=== PATIENT | male | born 1980 | race Hispanic/Latino ===

== ENCOUNTER 2020-01-30 01:44 | Emergency (ER) | payer OTHER | END 2020-01-30 03:13 | disposition home or self-care (01) | LOC: EDH 01:44 | DX: F41.9 Anxiety disorder, unspecified (principal); F14.10 Cocaine abuse, uncomplicated; J30.9 Allergic rhinitis, unspecified; Z72.0 Tobacco use | CPT/HCPCS: 71046; 93005 ==

== ENCOUNTER 2020-12-16 00:04 | Emergency (ER) | payer OTHER ==
[2020-12-16] MEDS ORDERED: DOXYCYCLINE HYCLATE 100 MG TABLET PO ONE (01:26)
== END 2020-12-16 02:18 | disposition home or self-care (01) ==
LOC: EDH 00:04
DX: L66.2 Folliculitis decalvans (principal); Z72.0 Tobacco use

== ENCOUNTER 2022-01-13 19:49 | Emergency (ER) | payer OTHER ==
[~2022-01-13] VITALS: Ht 162.6 cm; Wt 79.4 kg
[2022-01-13 19:49] VITALS: BP 138/77
[2022-01-13] MEDS ORDERED: NAPR500T6 PO (20:27)
[2022-01-13] MEDS ORDERED: ACET-2079 PO (20:27)
[2022-01-13] MEDS ORDERED: AMOX1TAB16 PO (20:27)
[2022-01-13] MEDS ORDERED: AMOX/CLAV 875/125MG TAB PO ONE (20:30)
[2022-01-13] MEDS ORDERED: KETOROLAC 30MG VIAL (30MG/ML) IM ONE (20:30)
[2022-01-13] MEDS ORDERED: ACETAMINOPHEN WITH CODEINE 1 TAB TAB PO ONE (20:30)
== END 2022-01-13 20:59 | disposition home or self-care (01) ==
LOC: EDH 19:49
DX: K08.89 Other specified disorders of teeth and supporting structures (principal); Z79.1 Long term (current) use of non-steroidal anti-inflammatories (NSAID)
CPT/HCPCS: 96372; 99283; J1885

== ENCOUNTER 2025-04-07 19:08 | Inpatient (IN) | payer SELFPAY ==
[~2025-04-07] VITALS: Ht 162.6 cm; Wt 78.0 kg
[~2025-04-07 19:08] MED LIST: ACET-2079 PO; AMOX1TAB16 PO; NAPR-1506 PO
--- NOTE | 2025-04-07 20:13 | ERN ---
General Chief Complaint: Palpitations Stated Complaint: PALPITATIONS Time Seen by MD: 20:03 History of Present Illness Initial Comments Mr. Quevedo is a very pleasant 44-year-old male with significant past medical history of a recent left hernia repair earlier today at [facility] by Dr. Melgar. Patient reports that after his surgery he was sent home and when he arrived he was resting. He reports that soon after started he started feeling palpitations, dizziness, nausea and right hand numbness. He reports NC in an elevated heart rate feeling his chest fall follow up by the shaking and numbness in his right hand. He also reports dry mouth, dizziness in episode of nausea upon arrival to the ED. he denies any chest pain or fever. Allergies: Coded Allergies: No Known Drug Allergies (Unverified Allergy, Unknown, 01/30/20) Home Meds Active Scripts Acetaminophen with Codeine (Acetaminophen-Cod #3 Tablet) 1 Each Tablet, 1 TAB PO Q4H PRN for PAIN LEVEL 7 TO 10, #7 TAB Prov:FITTINGCOSTAP 01/13/22 Naproxen (Naproxen) 500 Mg Tablet.dr, 500 MG PO BIDPC, #15 TAB Prov:FITTINGCOSTAP 01/13/22 Amoxicillin/Potassium Clav (Amox Tr-K Clv 875-125 mg Tab) 1 Each Tablet, 1 EACH PO BID, #14 TAB Prov:FITTINGCOSTAP 01/13/22 Past Medical History Past Medical History: No Pertinent History Past Surgical History: Other Surgical History Other: UMBILICAL HERNIA REPAIR 04/07/25 ROS Dictation Constitutional: Positive for dizziness and shaking Eyes: Negative for injury, pain,redness, and discharge ENT: Negative for injury,pain or swelling Cardiovascular: Positive for palpitations Respiratory: Negative for shortness of breath, cough, and wheezing, Abdomen/GI: Negative for abdominal pain, nausea, vomiting, diarrhea, and constipation Back: Negative for injury and pain : Negative for injury, bleeding and discharge MS/Extremity: Negative for injury and deformity Skin: Negative for rash, and discoloration Neuro: Negative for headache, weakness, numbness, tingling, and seizure Psych: Positive for anxiety Physical Exam Physical Exam Dictation General: awake, alert, NAD Head/Face: Normocephalic, atraumatic Eyes: PERRL, EOMI, vision at baseline ENT: oral cavity clear, TMs clear, no signs of infection Neck: Trachea midline, supple, no nuchal rigidity Cardiovascular: Tachycardic Respiratory: CTAB, no respiratory distress, No rales or wheezes Abdomen: Soft, non-tender, non-distended, normal bowel sounds, no guarding or rebound. Skin: Warm, dry, normal turgor, no rash MS/Extremity: Pulses equal, no cyanosis, neurovascular intact, FROM Neuro: COAx4, GCS 15, strength 5/5, CN 2-12 intact, normal cerebellar exam, normal gait, Psych: Visibly anxious Results Laboratory and Microbiology Lab and Micro Result Laboratory Tests Test 04/07/25 20:09 04/07/25 20:58 White Blood Count 16.1 K/uL (4.8-10.8) H Red Blood Count 4.42 MIL/uL (4.50-6.20) L Hemoglobin 12.9 g/dL (14.0-18.0) L Hematocrit 38.4 % (42-54) L Mean Corpuscular Volume 86.9 fL (79-99) Mean Corpuscular Hemoglobin 29.2 pg (27.0-33.0) Mean Corpuscular Hemoglobin Concent 33.6 g/dL (32.0-36.0) Red Cell Distribution Width 12.9 % (11.0-15.5) Platelet Count 365 K/uL (130-400) Mean Platelet Volume 9.0 fL (7.5-10.5) Immature Granulocyte % (Auto) 0.8 % (0-1) Neutrophils (%) (Auto) 90.9 % (40.0-77.0) H Lymphocytes (%) (Auto) 5.2 % (21.0-51.0) L Monocytes (%) (Auto) 3.0 % (3.0-13.0) Eosinophils (%) (Auto) 0.0 % (0.0-8.0) Basophils (%) (Auto) 0.1 % (0.0-5.0) Neutrophils # (Auto) 14.6 K/uL (1.8-7.7) H Lymphocytes # (Auto) 0.8 K/uL (1.0-4.8) L Monocytes # (Auto) 0.5 K/uL (0.1-1.0) Eosinophils # (Auto) 0.00 K/uL (0.00-0.70) Basophils # (Auto) 0.01 K/uL (0.00-0.20) Absolute Immature Granulocyte (auto 0.13 K/uL (0-1) Nucleated Red Blood Cells 0.0 % (0.0-0.19) White Cell Morphology Comment See comments Sodium Level 137 mmol/L (136-145) Potassium Level 4.0 mmol/L (3.5-5.1) Chloride Level 100 mmol/L (101-111) L Carbon Dioxide Level 25 mmol/L (21-32) Blood Urea Nitrogen 14 mg/dL (7-18) Creatinine 1.0 mg/dL (0.5-1.3) Glomerular Filtration Rate Calc 96 mL/min (>90) Random Glucose 153 mg/dL (70-105) H Total Calcium 8.8 mg/dL (8.5-10.1) Total Creatine Kinase 216 U/L (21-232) Troponin I High Sensitivity < 4 ng/L (4-75) L Urine Color LIGHT-YELLOW (YELLOW) Urine Appearance CLEAR (CLEAR) Urine pH 6.5 (5.0-8.0) Urine Specific [place] 1.016 (1.001-1.031) Urine Protein NEGATIVE mg/dL (NEGATIVE) Urine Glucose (UA) NEGATIVE mg/dL (NEGATIVE) Urine Ketones NEGATIVE mg/dL (NEGATIVE) Urine Occult Blood MODERATE (NEGATIVE) H Urine Nitrate NEGATIVE (NEGATIVE) Urine Bilirubin NEGATIVE mg/dL (NEGATIVE) Urine Urobilinogen 0.2 mg/dL (0.2-1.0) Urine Leukocyte Esterase NEGATIVE Genna/uL Urine RBC 26-50 /HPF (0-1) H Urine WBC 2-5 /HPF (0-1) H Urine Squamous Epithelial Cells RARE /HPF (0-2) Urine Bacteria None /HPF (None Seen) Urine Opiates Screen NEGATIVE (NEGATIVE) Urine Barbiturates Screen NEGATIVE (NEGATIVE) Urine Phencyclidine Screen NEGATIVE (NEGATIVE) Urine Amphetamines Screen NEGATIVE (NEGATIVE) Urine Benzodiazepines Screen POSITIVE (NEGATIVE) H Urine Cocaine Screen NEGATIVE (NEGATIVE) Urine Marijuana (THC) Screen NEGATIVE (NEGATIVE) MDM Patient has not inflammatory changes in the left inguinal canal. Patient will be given antibiotics. Patient will be admitted to Medicine MDM: Differential diagnosis: Sepsis Rationale: Tests considered and ordered secondary to shared decision making include: labs, ECG and radiology Previous outside records reviewed: Old ER visits. Risk of complication and/or morbidity or mortality of patient management: None Medications-Per medication reconciliation Need for hospitalization: Patient does meet criteria for hospitalization. Need for emergency major/minor surgery: No There are no social concerns with this patient. Prescription drug management Prescriptions will include symptomatic care Patient's prior external medical records from other ER visits were reviewed by me as indicated. Prior testing and results from previous visits were reviewed. Prior tests were taken into account with medical decision making and resource utilization, independent historian/historians were used to obtain complete medical history. I independently interpreted the test that were performed, results were reviewed by me and considered findings on radiology if ordered. Medical management and examination interpretation discussions were had by me with other qualified healthcare professionals as indicated for the patient's care. ED Course Orders Procedure Category Date Status Time Vital Signs Per CPOE 04/07/25 Transmitted Routine 19:57 Chest 1vw RAD 04/07/25 Resulted 19:57 12 Lead Ekg Tracing- EKG 04/07/25 Logged Technical 19:57 Oxygen By Nc/Pulse Ox CPOE 04/07/25 Transmitted 19:57 Maintain Iv CPOE 04/07/25 Transmitted 19:57 Iv Insertion CPOE 04/07/25 Transmitted 19:57 Cardiac Monitoring CPOE 04/07/25 Transmitted 19:57 Pulse Oximetry With CPOE 04/07/25 Transmitted Vs And Prn 19:57 Cbc With Differential LAB 04/07/25 Complete 19:57 Activity: Br W/Brp CPOE 04/07/25 Transmitted With Assist 19:57 Creatine Kinase, Total LAB 04/07/25 Complete 19:57 Troponin I High LAB 04/07/25 Complete Sensitivity 19:57 Urinalysis Profile LAB 04/07/25 Complete 19:57 Basic Metabolic Panel LAB 04/07/25 Complete 19:57 Lactated Ringers PHA 04/07/25 Complete 1000ml (Lactated 20:30 Ondansetron 4mg Inj PHA 04/07/25 Complete (Zofran 4mg Inj) 20:30 Lorazepam 1 Mg PHA 04/07/25 Complete (Ativan) 20:30 Drug Screen Urine LAB 04/07/25 Complete 20:58 Ct Abdomen/Pelvis CT 04/07/25 Resulted W/Contrast 21:30 Iohexol (Omnipaque) PHA 04/07/25 Complete 22:07 12 Lead Ekg Tracing- EKG 04/07/25 Logged Technical 22:09 Cefepime Hcl 1 Gm PHA 04/08/25 In Process Vial (Maxipime 1 Gm Vi 00:30 Current Medications Medications (Trade) Dose Ordered Sig/Danielle Route PRN Reason Start Time Stop Time Status Last Admin Dose Admin Cefepime HCl (MAXipime 1 GM vial) 1 gm Q8H IVPB 04/08/25 00:30 04/18/25 00:29 Iohexol (Omnipaque) 35,000 mg STK-MED ONCE IV 04/07/25 22:07 04/07/25 22:08 DC Lactated Ringer's 591 ml @ 197 mls/hr ONCE ONCE IV 04/07/25 20:30 04/07/25 23:29 DC 04/07/25 20:40 Lorazepam (AtiVAN) 1 mg ONCE ONCE PO 04/07/25 20:30 04/07/25 20:31 DC 04/07/25 20:40 Ondansetron HCl (zoFRAN 4MG INJ) 4 mg ONCE ONCE IVP 04/07/25 20:30 04/07/25 20:31 DC 04/07/25 20:40 Vital Signs Date Time Temp Pulse Resp B/P (MAP) Pulse Ox O2 Delivery O2 Flow Rate FiO2 04/07/25 23:48 98.4 91 17 114/67 95 Room Air* 0 04/07/25 22:45 98.8 102 19 106/66 95 Room Air* 0 04/07/25 21:47 98.8 110 18 116/69 96 Room Air* 0 04/07/25 21:09 98.8 133 14 120/70 100 Room Air* 0 04/07/25 20:15 98.2 108 17 123/74 98 Room Air* 0 04/07/25 19:46 98.2 94 18 125/70 97 Room Air 0 DX & DISP Disposition: Inpatient Departure Impression: Primary Impression: Sepsis Condition: Stable Referrals: LEESA HUDDLESTON MD (PCP) LOLY GOODWIN MD Apr 07, 2025 20:13
[2025-04-07 20:17] LABS: IMMATURE GRANULOCYTE ABSOLUTE 0.13 K/uL (0-1); NUCLEATED RED BLOOD CELLS 0.0 % (0.0-0.19); PLATELET COUNT (AUTO) 365 K/uL (130-400); RED BLOOD CELL COUNT(AUTO) 4.42 MIL/uL (4.50-6.20); RED CELL DISTRIBUTION WIDTH 12.9 % (11.0-15.5); WHITE BLOOD COUNT (AUTO) 16.1 K/uL (4.8-10.8)
[2025-04-07 20:28] LABS: CREATININE 1.0 mg/dL (0.5-1.3); GLOMERULAR FILTR. RATE CALC 96.0 mL/min (>90); GLUCOSE,RANDOM 153.0 mg/dL (70-105); SODIUM SERUM 137.0 mmol/L (136-145); UREA NITROGEN, BLOOD 14.0 mg/dL (7-18)
[2025-04-07 20:39] LABS: CREATINE KINASE, TOTAL 216.0 U/L (21-232)
[2025-04-07] MEDS: LACTATED RINGERS IV ONE (20:40)
[2025-04-07 21:09] LABS: APPEARANCE,URINE CLEAR (CLEAR); GLUCOSE, URINE (UA) NEGATIVE (NEGATIVE); LEUKOCYTE ESTERASE ,URINE NEGATIVE Leu/uL (NEGATIVE); NITRATE,URINE NEGATIVE (NEGATIVE); OCCULT BLOOD,URINE MODERATE (NEGATIVE)
[2025-04-07 21:12] LABS: ADD UA MICROSCOPIC YES
[2025-04-07 21:15] LABS: SQUAMOUS EPITHELIAL CELL,UR RARE /HPF (0-2)
[2025-04-07 21:19] LABS: AMPHET/METH SCREEN,URINE NEGATIVE (NEGATIVE); BARBITURATE SCREEN, URINE NEGATIVE (NEGATIVE); CANNABINOID SCREEN,URINE NEGATIVE (NEGATIVE); COCAINE SCREEN,URINE NEGATIVE (NEGATIVE)
[2025-04-07] MEDS ORDERED: IOHEXOL 350 MG/ML 100ML INFUS..BTL IV ONE (22:07)
--- NOTE | 2025-04-07 22:19 | HMCIMG ---
EXAM: CR Chest, 1 view CLINICAL HISTORY: Chest pain. COMPARISON: Chest radiograph dated 01/30/2020. FINDINGS: The lungs show no infiltrates or other acute findings. No pleural effusion or pneumothorax. The cardiomediastinal silhouette is within normal limits. No acute osseous abnormality. IMPRESSION: No acute cardiopulmonary process is evident. No interval changes. /[place]
--- NOTE | 2025-04-07 23:46 | HMCIMG ---
EXAM: CT Abdomen and Pelvis with IV contrast CLINICAL HISTORY: Pain. TECHNIQUE: Thin collimated axial CT images of the abdomen and pelvis were obtained, with sagittal and coronal reformatted images also submitted. A CT scan is done according to ALARA (As Low As Reasonably Achievable). COMPARISON: CT scan of the abdomen and pelvis. 05/27/2012. FINDINGS: Unremarkable visualized lung parenchyma. There is no focal abnormality appreciated within the liver, gallbladder, pancreas, spleen, adrenals, or kidneys. There is no obvious bowel wall thickening. Bowel loops are normal in caliber without evidence of obstruction or ileus. The appendix is unremarkable. There is no abnormality within the urinary bladder. Unremarkable reproductive organs. Trace free fluid in the cul-de-sac. No lymphadenopathy. No pneumoperitoneum. Moderate inflammation with emphysematous changes in the left inguinoscrotal region and lower left anterior abdominal wall. Focal nodular inflammatory thickening of the fascia in the left iliac fossa region measuring 3.7 x 3.0 x 2.2 cm. No gross abnormality in the abdominal vessels. There is no acute osseous abnormality. IMPRESSIONS: Moderate inflammation with emphysematous changes in the left inguinoscrotal region and left lower anterior abdominal wall. Focal nodular inflammatory thickening of the fascia in the left iliac fossa region. The findings are new compared to the previous CT dated 05/27/2012. /Mansi
[2025-04-08] MEDS ORDERED: guaiFENesin-DM 200/20MG 10ML PO PRN (07:30)
[2025-04-08] MEDS ORDERED: PoTASSium chl 10% ELIXIR 20MEQ 20 MEQ/15 ML UDCUP PO PRN (07:30)
[2025-04-08] MEDS ORDERED: DEXTROSE 50%-WATER 50 ML DISP.SYRIN IV PRN (07:30)
[2025-04-08] MEDS ORDERED: NITROGLYCERIN 0.4 MG SL TAB SL PRN (07:30)
[2025-04-08] MEDS ORDERED: MAGNESIUM 2GM PREMIX 50ML 50 ML IV PRN (07:30)
[2025-04-08] MEDS ORDERED: LACTULOSE 20 GM/30 ML UDCUP PO PRN (07:30)
[2025-04-08] MEDS ORDERED: GLUCAGON 1MG KIT 1 MG ML IM PRN (07:30)
[2025-04-08] MEDS ORDERED: HYDROcodone/APAP 5/325 1 TAB TABLET PO PRN (07:30)
[2025-04-08] MEDS ORDERED: PoTASSium chloRIDE 10MEQ SR 10 MEQ/TAB TAB.SR.24H PO PRN (07:30)
[2025-04-08] MEDS ORDERED: MAG/ALUM/SIMETH 30 ML UDCUP PO PRN (07:30)
[2025-04-08] MEDS ORDERED: FAMOTIDINE 20MG VIAL IV PRN (07:30)
--- NOTE | 2025-04-08 07:31 | EKG ---
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
[2025-04-08 08:00] VITALS: BP 106/57; PULSE 71; RESP 17; TEMP 97.6
[2025-04-08] MEDS: FAMOTIDINE 20MG VIAL IV SCH (08:13)
[2025-04-08] MEDS: 0.9%NACL 1000ML 1,000 ML IV SCH (08:13)
[2025-04-08 12:00] VITALS: BP 155/65; PULSE 87; RESP 18; TEMP 97.8
[2025-04-08] MEDS ORDERED: VANCOMYCIN PROTOCOL PER PHARMACY IV SCH (13:00)
--- NOTE | 2025-04-08 13:52 | HP ---
[facility] HISTORY AND PHYSICAL Date of Service: Apr 08, 2025 Time of Service: 13:37 PCP self reffering Admitting: Dr Sands, Allergies: No Allergy Information Available, No Known Drug Allergies HISTORY OF PRESENT ILLNESS: [ Patient is 44 years old male with a past medical history of anxiety, who came to emergency department s/p hernia repair yesterday with Dr. Nelson the [facility] in [place]. Patient reports that after his surgery he was sent home and when he arrived he was resting. He reports that soon after started he started feeling palpitations, dizziness, nausea and right hand numbness. He reports NC in an elevated heart rate feeling his chest fall follow up by the shaking and numbness in his right hand. He also reports dry mouth, dizziness in episode of nausea upon arrival to the ED. he denies any chest pain or fever. Most recent vital signs temperature 97.9 pulse 87 respiration 18 blood pressure 155/65 patient is on room air satting 98%. WBC 16.1 hemoglobin 12.9 hematocrit 38.4 platelets 365. UA negative for leukocytosis or nitrates. Toxicology positive for for benzodiazepines. Sodium 137 potassium 4.0 CO2 25 BUN 14 creatinine 1.0 GFR 96. Chest x-ray negative. CT abdomen/pelvis showed moderate inflammation with emphasis tramadol was changes in the left inguinal scrotal region and left lower anterior abdominal wall. Focal nodular inflammatory thickening of the fascia in the left iliac fossa region. The findings are new compared to the previous CT dated 05/27/2012. Patient will be admitted under hospitalist care for further evaluation/recommendation. Patient was placed on cefepime and vancomycin. We will consult Infectious Disease doctor and surgeon. A.m. labs REVIEW OF SYSTEMS CONSTITUTIONAL: Denies fevers, chills, or night sweats. No unintentional weight loss reported. NEUROLOGICAL: Denies headache, amaurosis fugax, motor weakness, sensory deficit, vertigo/spinning sensation, gait abnormalities, or tremors. ENT: No hearing loss, otalgia, otorrhea, rhinitis, rhinorrhea, hoarseness, or sore throat. CARDIOVASCULAR: Denies any exertional angina, dyspnea on exertion, orthopnea, paroxysmal nocturnal dyspnea, palpitations, life-threatening arrhythmias, claudication. Palpitations PULMONARY: Denies any shortness of breath, cough, phlegm/sputum, hemoptysis, pleuritic chest pain. SLEEP: Denies morning headaches, daytime somnolence or napping. Denies difficulty falling asleep, staying asleep, waking from sleep. Denies knowledge of snoring. GASTROINTESTINAL: Denies any type of dysphagia to either liquids or solids. Denies nausea, vomiting, pyrosis, early satiety, abdominal pain, diarrhea, constipation, or changes in stool consistency or caliber. Denies coffee-ground emesis, hematemesis, hematochezia, or melanotic stools. GENITOURINARY: Denies frequency, urgency, nocturia, hematuria or incontinence (Storage/Irritative symptoms.) Low urinary stream, straining to void, urinary intermittency or hesitancy, splitting of the voiding stream, terminal dribbling. ENDOCRINOLOGIC: Denies polyuria, polydipsia, polyphagia or heat/cold intolerances. HEMATOLOGIC: Denies thrombophilia/previous clots, or coagulopathy/bleeding disorders. ONCOLOGIC: Denies personal history of malignancy. DERMATOLOGIC: Denies rashes or pruritus. PSYCHIATRIC: Denies any suicidal or homicidal ideation. Denies hallucinations. PAST MEDICAL HISTORY: [ Anxiety] PAST SURGICAL HISTORY: [ Hernia repair 04/07/25 ] PAST SOCIAL HISTORY: [ Patient denies smoking. Patient denies any drug illicit. Patient denies any alcohol illicit ] FAMILY HISTORY: [ Patient lives at home with the family ] Coded Allergies: No Known Drug Allergies (Unverified Allergy, Unknown, 01/30/20) PHYSICAL EXAM GENERAL APPEARANCE: The patient is awake, alert, and oriented, in no acute cardiopulmonary distress. NEUROLOGICAL: Cranial nerves II-XII grossly intact. Motor is 5/5 in bilateral upper and lower extremities proximal to distal. No sensory deficits. HEENT: Face is symmetric. Pupils are equal and reactive. Extraocular movements are intact. NECK: Supple. No JVD. No thyromegaly. No submental, submandibular, pre-/postau ricular, occipital or supraclavicular lymphadenopathy. CHEST: Normal chest expansion. No Telemetry. LUNGS: Absence of any rales, rhonchi or any wheezing. CARDIOVASCULAR: Regular. S1 and S2 normal. No appreciable rubs, murmurs or gallops. ABDOMEN: Soft, nontender, and nondistended. There is no rebound, voluntary guarding, or rigidity. : Deferred. No [place]. EXTREMITIES: Non-edematous and not cyanotic. No clubbing. Good capillary refill. SKIN: No skin breakdown. Vital Sign (Last 24 Hours) 04/08/25 04/08/25 05:45 12:00 Temp 97.9 Pulse 87 Resp 18 B/P (MAP) 155/65 Pulse Ox 98 O2 Delivery Room Air O2 Flow Rate 0 FiO2 21 LABS: Laboratory: Test 04/08/25 11:39 04/07/25 20:58 04/07/25 20:09 Range/Units Whole Blood Glucose 87 70-110 MG/DL Urine Color LIGHT-YELLOW YELLOW Urine Appearance CLEAR CLEAR Urine pH 6.5 5.0-8.0 Urine Specific [place] 1.016 1.001-1.031 Urine Protein NEGATIVE NEGATIVE mg/dL Urine Glucose (UA) NEGATIVE NEGATIVE mg/dL Urine Ketones NEGATIVE NEGATIVE mg/dL Urine Occult Blood MODERATE H NEGATIVE Urine Nitrate NEGATIVE NEGATIVE Urine Bilirubin NEGATIVE NEGATIVE mg/dL Urine Urobilinogen 0.2 0.2-1.0 mg/dL Urine Leukocyte Esterase NEGATIVE NEGATIVE Genna/uL Urine RBC 26-50 H 0-1 /HPF Urine WBC 2-5 H 0-1 /HPF Urine Squamous Epithelial Cells RARE 0-2 /HPF Urine Bacteria None None Seen /HPF Urine Opiates Screen NEGATIVE NEGATIVE Urine Barbiturates Screen NEGATIVE NEGATIVE Urine Phencyclidine Screen NEGATIVE NEGATIVE Urine Amphetamines Screen NEGATIVE NEGATIVE Urine Benzodiazepines Screen POSITIVE H NEGATIVE Urine Cocaine Screen NEGATIVE NEGATIVE Urine Marijuana (THC) Screen NEGATIVE NEGATIVE White Blood Count 16.1 H 4.8-10.8 K/uL Red Blood Count 4.42 L 4.50-6.20 MIL/uL Hemoglobin 12.9 L 14.0-18.0 g/dL Hematocrit 38.4 L 42-54 % Mean Corpuscular Volume 86.9 79-99 fL Mean Corpuscular Hemoglobin 29.2 27.0-33.0 pg Mean Corpuscular Hemoglobin Concent 33.6 32.0-36.0 g/dL Red Cell Distribution Width 12.9 11.0-15.5 % Platelet Count 365 130-400 K/uL Mean Platelet Volume 9.0 7.5-10.5 fL Immature Granulocyte % (Auto) 0.8 0-1 % Neutrophils (%) (Auto) 90.9 H 40.0-77.0 % Lymphocytes (%) (Auto) 5.2 L 21.0-51.0 % Monocytes (%) (Auto) 3.0 3.0-13.0 % Eosinophils (%) (Auto) 0.0 0.0-8.0 % Basophils (%) (Auto) 0.1 0.0-5.0 % Neutrophils # (Auto) 14.6 H 1.8-7.7 K/uL Lymphocytes # (Auto) 0.8 L 1.0-4.8 K/uL Monocytes # (Auto) 0.5 0.1-1.0 K/uL Eosinophils # (Auto) 0.00 0.00-0.70 K/uL Basophils # (Auto) 0.01 0.00-0.20 K/uL Absolute Immature Granulocyte (auto 0.13 0-1 K/uL Nucleated Red Blood Cells 0.0 0.0-0.19 % White Cell Morphology Comment See comments Sodium Level 137 136-145 mmol/L Potassium Level 4.0 3.5-5.1 mmol/L Chloride Level 100 L 101-111 mmol/L Carbon Dioxide Level 25 21-32 mmol/L Blood Urea Nitrogen 14 7-18 mg/dL Creatinine 1.0 0.5-1.3 mg/dL Glomerular Filtration Rate Calc 96 >90 mL/min Random Glucose 153 H 70-105 mg/dL Total Calcium 8.8 8.5-10.1 mg/dL Total Creatine Kinase 216 21-232 U/L Troponin I High Sensitivity < 4 L 4-75 ng/L Current Medications Medications (Trade) Dose Ordered Sig/Danielle Route PRN Reason Start Time Stop Time Status Last Admin Dose Admin Acetaminophen (TYLenol 325MG TAB) 650 mg Q4H PRN PO MILD PAIN (1-3) 04/08/25 07:30 05/08/25 07:29 Acetaminophen (TYLenol 325MG TAB) 650 mg Q6H PRN PO MILD PAIN (1-3) 04/08/25 07:30 04/08/25 07:25 DC Acetaminophen (TYLenol 325MG TAB) 650 mg Q6H PRN PO TEMPERATURE GREATER THAN 101.5 04/08/25 07:30 05/08/25 07:29 Acetaminophen/ Hydrocodone Bitart (NORco 5/325MG) 1 tab Q6H PRN PO MODERATE PAIN (4-6) 04/08/25 07:30 04/08/25 07:32 DC Al Hydroxide/Mg Hydroxide (MAALox PLUS 30ML) 30 ml Q6H PRN PO INDIGESTION 04/08/25 07:30 05/08/25 07:29 Cefepime HCl (MAXipime 1 GM vial) 1 gm Q8H IVPB 04/08/25 00:30 04/08/25 07:26 DC 04/08/25 00:42 1 GM Ceftriaxone Sodium 2 gm/ Sodium Chloride 100 ml @ 200 mls/hr Q24H IV 04/08/25 07:30 04/08/25 07:32 DC Ceftriaxone Sodium (Rocephin 2gm Inj) 2 gm Q24H IVPB 04/08/25 08:00 04/18/25 07:59 04/08/25 08:15 2 GM Dextrose (D50w) 50 ml AD PRN IV HYPOGLYCEMIA PROTOCOL 04/08/25 07:30 05/08/25 07:29 Diphenhydramine HCl (BENAdryl INJ) 25 mg Q6H PRN IV SEVERE ITCHING/RASH 04/08/25 07:30 05/08/25 07:29 Famotidine (Pepcid 20mg Vial) 20 mg BID IV 04/08/25 09:00 05/08/25 08:59 04/08/25 08:13 20 MG Famotidine (Pepcid 20mg Vial) 20 mg BID PRN IV NAUSEA/VOMITING 04/08/25 07:30 04/08/25 07:25 DC Glucagon (Glucagon 1mg Kit) 1 mg AD PRN IM HYPOGLYCEMIA PROTOCOL 04/08/25 07:30 05/08/25 07:29 Guaifenesin/ Dextromethorphan (RobiTUSSin DM 200/20MG 10ML) 10 ml Q4H PRN PO COUGH 04/08/25 07:30 05/08/25 07:29 Heparin Sodium (Porcine) (HEParin 5,000 UNIT VIAL) 5,000 unit BID SQ 04/08/25 09:00 05/08/25 08:59 04/08/25 08:15 5,000 UNIT Hydralazine HCl (APRESOLine 20MG INJ) 10 mg Q6H PRN IV For:SBP above 160;DBP above 90 04/08/25 07:30 05/08/25 07:29 Insulin Human Regular (humuLIN R 100 UNIT/ML 3ML) INSULIN SLIDING SCAL... ACHS SQ 04/08/25 07:30 05/08/25 07:29 Ketorolac Tromethamine (toRADol) 15 mg Q8H PRN IV MODERATE PAIN (4-6) 04/08/25 07:30 04/13/25 07:29 Lactulose (Constulose 20gm/ 30ml Udcup) 20 gm BID PRN PO CONSTIPATION 04/08/25 07:30 05/08/25 07:29 Magnesium Sulfate 50 ml @ 0 mls/hr PROTOCOL PRN IV OTHER [SEE ORDER COMMENTS] 04/08/25 07:30 05/08/25 07:29 Morphine Sulfate (morPHINE 2MG SYG) 1 mg Q4H PRN IVP SEVERE PAIN (7-10) 04/08/25 07:30 04/15/25 07:29 Nitroglycerin (Nitrostat) 0.4 mg PROTOCOL PRN SL CHEST PAIN 04/08/25 07:30 05/08/25 07:29 Ondansetron HCl (zoFRAN 4MG INJ) 4 mg Q6H PRN IV NAUSEA/VOMITING 04/08/25 07:30 05/08/25 07:29 Potassium Chloride 100 ml @ 100 mls/hr AD PRN IV POTASSIUM PROTOCOL 04/08/25 07:30 05/08/25 07:29 Potassium Chloride (K-Dur 10meq Sr Tab) 10 meq AD PRN PO POTASSIUM PROTOCOL 04/08/25 07:30 05/08/25 07:29 Potassium Chloride (KCl 10% Elixir 20meq/15ml) 10 meq AD PRN PO POTASSIUM PROTOCOL 04/08/25 07:30 05/08/25 07:29 Sodium Chloride 1,000 ml @ 100 mls/hr Q10H IV 04/08/25 07:30 05/08/25 07:29 04/08/25 08:13 100 MLS/HR Vancomycin HCl 250 ml @ 125 mls/hr Q12H IV 04/09/25 06:00 04/19/25 05:59 Vancomycin HCl (Vancomycin Protocol) 1 each AD IV 04/08/25 13:00 04/22/25 12:59 Zolpidem Tartrate (AmbIEN) 5 mg HS PRN PO INSOMNIA 04/08/25 07:30 8/15/25 07:29 DIAGNOSTICS / RADIOLOGY: [ ] ASSESSMENT: [ Acute symptomatic tachycardia POA s/p hernia repair 04/07/[address] Omar ESCOBAR Severe anxiety POA ] PLAN: [ Admit to: Medical-surgical floor Consults: surgeon, JEFFREY Antibiotics: Vancomycin and cefepime Tests: 2D echo NEURO: Minimize central acting medications as possible. Fall Precautions. Well lighted room through the day and minimize interruptions through the night to prevent acute delirium. PULMONARY: Supplemental 02 as needed BiPAP as necessary, for respiratory distress Titrate Fio2 to keep Spo2 > or = 90% DuoNebs and CPT as needed IS hourly while awake for pulmonary hygiene Out of bed to chair as tolerated VAP Bundle Maintain aspiration precautions at all times CARDIOVASCULAR: Follow hemodynamics. Vital signs per facility protocol GI & NUTRITION: Continue nutritional support Aspirations precautions Prokinetic agents and laxatives as needed KIDNEYS & ELECTROLYTES: Strict monitoring of intake and output Daily weights Avoid nephrotoxic agents Monitor electrolytes and replace as needed Goal urine output of 30mL/hr or 0.5mL/kg/hr Medications to be dosed according to renal function. Avoid contrast if possible ENDOCRINE: Maintain blood glucose between 100-180 at all times. Insulin sliding scale for blood glucose management Hypoglycemia and hyperglycemia protocol in place INFECTIOUS DISEASE: Trend temperature, WBC and procalcitonin level Follow cultures, deescalate antibiotics as soon as possible. Panculture if new onset fever HEMATOLOGY & COAGULATION: Monitor H&H. Keep Hgb > 7 Transfuse 1 unit of PRBC for Hgb < 7 Transfuse 1 pack of platelets of platelets < 20, 000 Watch for any signs and symptoms of bleeding SKIN: Pressure ulcer prevention per facility protocol Specialty mattress as needed Treatment plan discussed with patient and family at the bedside Medications to be reconciled once obtained by patient and/or family and available to be reconciled in computer p.r.n. medication for pain nausea and vomiting Questions were answered We will continue to monitor the patient closely Qualifications Examiner for disposition Rehab: PT/OT GI: PPI DVT: SCD's Code Status: Full Resuscitation Disposition: TBD Prognosis: Guarded ] ADVANCED CARE PLANNING 1. Which of the following were discussed? Hospice Care - Yes / No Therapeutic options - Yes / No Advance Directives - Yes / No Other discussions - 2. Discussed with who? Patient 3. Voluntary nature of this service was explained to the patient? Yes / No 4. Amount of time spent - ___ more than 35 minutes ____ 5. Reviewed by Physician? (if this service was performed by NPP) Yes / No ATTESTATION BY PHYSICIAN I have seen and examined the patient. I reviewed the documentation, medical decision making, and treatment plan as noted by the mid-level provider above. I agree with the findings and plan of care. SUSHIL SANDS MD, KATARZYNA B RN REFERRAL Apr 08, 2025 13:52
[2025-04-08] MEDS: VANCOMYCIN 2GM/500 ML BAG 500 ML IV ONE (13:53)
[2025-04-08 14:43] LABS: IMMATURE GRANULOCYTE ABSOLUTE 0.05 K/uL (0-1); NUCLEATED RED BLOOD CELLS 0.0 % (0.0-0.19); PLATELET COUNT (AUTO) 344 K/uL (130-400); RED BLOOD CELL COUNT(AUTO) 4.39 MIL/uL (4.50-6.20); RED CELL DISTRIBUTION WIDTH 13.1 % (11.0-15.5); WHITE BLOOD COUNT (AUTO) 9.3 K/uL (4.8-10.8)
[2025-04-08 14:59] LABS: ASPARTATE AMINOTRANSFERASE 24.0 U/L (10-37); CREATININE 1.1 mg/dL (0.5-1.3); GLOMERULAR FILTR. RATE CALC 86.0 mL/min (>90); GLUCOSE,RANDOM 101.0 mg/dL (70-105); SODIUM SERUM 142.0 mmol/L (136-145); TOTAL PROTEIN, SERUM 7.0 g/dL (6.0-8.3); UREA NITROGEN, BLOOD 11.0 mg/dL (7-18)
--- NOTE | 2025-04-08 15:03 | EKG ---
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
[2025-04-08 16:00] VITALS: BP 116/65; PULSE 85; RESP 18; TEMP 98.2
[2025-04-08 16:38] LABS: AMPHET/METH SCREEN,URINE NEGATIVE (NEGATIVE); BARBITURATE SCREEN, URINE NEGATIVE (NEGATIVE); CANNABINOID SCREEN,URINE NEGATIVE (NEGATIVE); COCAINE SCREEN,URINE NEGATIVE (NEGATIVE)
[2025-04-08 18:33] VITALS: O2SAT 99
--- NOTE | 2025-04-08 20:42 | PN ---
INFECTIOUS DISEASE FOLLOWUP NOTE DATE OF SERVICE: 04/08/2025 SUBJECTIVE: The patient is seen and examined at bedside today. The patient has no fever, no chills. No nausea or vomiting. No bleeding tendency. No rashes or itchiness. Palpitation has resolved. No dysuria or urinary frequency. PHYSICAL EXAMINATION: VITAL SIGNS: Temperature 98.7. EYES: No icterus. Pupils equal and reactive. HENT: No oral thrush seen. Moist oral mucosa. NECK: Supple. No JVD or thyromegaly. LUNGS: Good air entry. No rales. No rhonchi. CARDIOVASCULAR: S1 and S2, regular. No murmur heard. ABDOMEN: Full, soft. Bowel sound is present. CENTRAL NERVOUS SYSTEM: Awake, alert, oriented x 3. No focal deficits. SKIN: No rashes. No itchiness. LYMPHATIC: No peripheral lymphadenopathy. BACK: No deformity. No pressure ulcer. HEMATOLOGIC: No bleeding or petechial lesions seen. ASSESSMENT: A 44-year-old male presented with palpitation. Current problems include: * Palpitation. * Dehydration. * Leukocytosis. * ____ status post surgery ____. PLAN: * Continue nutritional support. * Continue pain management. * Continue antiemetic. * Continue GI prophylaxis. * No antibiotic needed at this time. TID: [id number] RECEIPT: [id number]
--- NOTE | 2025-04-08 23:01 | HMCSR ---
APPROVED REPORT EXAM: Two-dimensional and M-mode echocardiogram with Doppler and color Doppler. INDICATION ICD: Chest Pain Heart Failure 2D Dimensions RVDd4.8 cmLVEF(%)56.7 (>50%)LVED Vol(simp.)108.0 mL IVSd0.6 (0.7-1.1cm)FS(%)30 %LVES Vol(simp.)54.0 mL LVDd4.9 (3.8-5.6cm)LA (2D)3.3 (1.6-4.0cm)LVEF(%, simp.)50 % PWd0.8 (0.7-1.1cm)Ao Root(2D)2.8 (2.0-3.7cm)LA ESV INDEX (BP)37.54 mL/m2 LVDs3.5 (2.5-4.0cm)LVOT diam2.2 (1.8-2.4cm) IVC diam1.4 cm Deformation Strain Apical 4-15.8 % Apical 2-17.5 % Apical 3-16.3 % Global Strain-16.5 % M-Mode Dimensions LA (MM)3.5 (1.6-4.0cm) Ao Root(MM)2.8 (2.0-3.7cm) Aortic Valve AoV Vmax1.3 m/Ericka Peak GR7.2 mmHgLVOT Vmax1.3 m/s AoV VTI0.3 mAo Mean GR4.0 mmHgLVOT VTI0.25 m ASIA (VMAX)3.95 cm2AVA (VTI) 3.3 cm2 Mitral Valve MV E Vmax98.0 cm/sDECEL [id number] ms MV A Vmax40.7 cm/sP 1/2 T98 ms E/A ratio2.4MVA (PHT)2.2 cm2 TDI E/E' Medial8.5E/E' Lateral6.3 Medial E' Peak V11.56 cm/sLateral E' Peak V15.45 cm/s Pulmonary Valve PV Vmax1.0 m/sPV VTI0.21 mPV Mean GR2.1 mmHg PV Peak GR3.7 mmHg Tricuspid Valve TR Vmax2.0 m/sRVSP16.3 mmHg TR Peak GR16.4 mmHg Left Ventricle The left ventricle is normal size. There is normal LV segmental wall motion. There is normal left jamia tricular wall thickness. LVEF is 55%. The left ventricular diastolic function is normal. Right Ventricle The right ventricle is normal size. The right ventricular systolic function is normal. Atria The left atrium is normal. The right atrium is mildly dilated. Cannot exclude right atrial thrombus i n transit. Aortic Valve The aortic valve is normal in structure. No aortic regurgitation is present. There is no aortic valvu lar stenosis. Mitral Valve The mitral valve is normal in structure. Mitral regurgitation is trace. There is no mitral valve sten osis. Tricuspid Valve The tricuspid valve is normal in structure. There is trace tricuspid valve regurgitation noted. Pulmonic Valve The pulmonary valve is normal in structure. There is no pulmonic valvular regurgitation. Great Vessels The aortic root is normal in size. The IVC is normal in size and collapses >50% with inspiration. Can not exclude thrombus in transit in IVC. Pericardium There is no pericardial effusion. Conclusion LVEF is 55%. The right atrium is mildly dilated. Cannot exclude right atrial thrombus in transit.
[2025-04-09 02:12] VITALS: O2SAT 96
--- NOTE | 2025-04-09 02:12 | NUR ---
ADMISSION: PT RECEIVED FROM ER VIA STRETCHER, NO FAMILY AT BEDSIDE. PT STATES HE HAD A LEFT INGUINAL HERNIA REPAIR ON 04/07/25 AND WAS SENT HOME THEN DEVELOPED PALPITATIONS, NUMBNESS TO UPPER ARMS AND LEGS. TELE# [id number] PLACED TO CHEST WALL, VOICES NO CHEST PAIN/PALPITATIONS AT THE MOMENT. PT STATES HE DOES NOT TAKE ANY HOME MEDICATIONS. LEFT INGUINAL INCISION WITH DERMABOND AND STERI STRIPS, DRESSING DRY/INTACT. NO SIGNS OF INFECTION OR DRAINAGE NOTED TO LEFT INGUINAL INCISION, SLIGHT SWELLING NOTED AROUND INCISION. PT ASKED TO HAVE IV .SL FROM RIGHT FOREARM TAKEN OUT, 20G IV STARTED TO RIGHT HAND. ORIENTED TO ROOM, SURROUNDINGS AND CALL LIGHT. ENCOURAGED TO USE CALL LIGHT FOR ASSISTANCE, S/R UP X 2, CALL ANTUNEZ WITHIN REACH.
[2025-04-09 02:15] VITALS: BP 122/69; PULSE 68; RESP 20; TEMP 98.2
[2025-04-09 02:15] LABS: INFLUENZA TYPE A Negative For Type A (NEGATIVE); INFLUENZA TYPE B Negative For Type B (NEGATIVE)
[2025-04-09] MEDS: VANCOMYCIN 1.25 GM/250 ML BAG 250 ML IV SCH (05:42)
[2025-04-09 07:01] LABS: IMMATURE GRANULOCYTE ABSOLUTE 0.03 K/uL (0-1); NUCLEATED RED BLOOD CELLS 0.0 % (0.0-0.19); PLATELET COUNT (AUTO) 306 K/uL (130-400); RED BLOOD CELL COUNT(AUTO) 4.05 MIL/uL (4.50-6.20); RED CELL DISTRIBUTION WIDTH 13.0 % (11.0-15.5); WHITE BLOOD COUNT (AUTO) 6.5 K/uL (4.8-10.8)
[2025-04-09 07:09] LABS: ASPARTATE AMINOTRANSFERASE 21 U/L (10-37); CREATINE KINASE, TOTAL 151 U/L (21-232); CREATININE 1.0 mg/dL (0.5-1.3); GLOMERULAR FILTR. RATE CALC 96 mL/min (>90); GLUCOSE,RANDOM 93 mg/dL (70-105); SODIUM SERUM 142 mmol/L (136-145); TOTAL PROTEIN, SERUM 6.3 g/dL (6.0-8.3); UREA NITROGEN, BLOOD 13 mg/dL (7-18)
[2025-04-09 07:44] VITALS: BP 99/57; PULSE 68; RESP 18; TEMP 97.8
[2025-04-09 08:38] VITALS: O2SAT 99
--- NOTE | 2025-04-09 09:48 | CONS ---
GENERAL SURGERY CONSULTATION NOTE DATE OF CONSULTATION: Apr 09, 2025 TIME OF CONSULTATION: 09:47 CONSULTING SERVICE: Katty Cedillo MD REQUESTING PHYSICAIN: [ ] REASON FOR CONSULTATION: [ ] HISTORY OF PRESENT ILLNESS: [ ] PAST MEDICAL HISTORY: [ ] PAST SURGICAL HISTORY: [ ] FAMILY HISTORY: [ ] SOCIAL HISTORY: [ ] Current Medications Medications (Trade) Dose Ordered Sig/Danielle Route Start Time Stop Time Status Last Admin Dose Admin Cefepime HCl (MAXipime 1 GM vial) 1 gm Q8H IVPB 04/08/25 00:30 04/08/25 07:26 DC 04/08/25 00:42 1 GM Ceftriaxone Sodium 2 gm/ Sodium Chloride 100 ml @ 200 mls/hr Q24H IV 04/08/25 07:30 04/08/25 07:32 DC Ceftriaxone Sodium (Rocephin 2gm Inj) 2 gm Q24H IVPB 04/08/25 08:00 04/18/25 07:59 04/09/25 08:38 2 GM Famotidine (Pepcid 20mg Vial) 20 mg BID IV 04/08/25 09:00 05/08/25 08:59 04/09/25 08:38 20 MG Heparin Sodium (Porcine) (HEParin 5,000 UNIT VIAL) 5,000 unit BID SQ 04/08/25 09:00 05/08/25 08:59 04/09/25 09:03 5,000 UNIT Insulin Human Regular (humuLIN R 100 UNIT/ML 3ML) INSULIN SLIDING SCAL... ACHS SQ 04/08/25 07:30 05/08/25 07:29 Sodium Chloride 1,000 ml @ 100 mls/hr Q10H IV 04/08/25 07:30 05/08/25 07:29 04/09/25 02:46 100 MLS/HR Vancomycin HCl 250 ml @ 125 mls/hr Q12H IV 04/09/25 06:00 04/19/25 05:59 04/09/25 05:42 125 MLS/HR Vancomycin HCl (Vancomycin Protocol) 1 each AD IV 04/08/25 13:00 04/22/25 12:59 Allergies: Coded Allergies: No Known Drug Allergies (Unverified Allergy, Unknown, 01/30/20) REVIEW OF SYSTEMS: FISHERY BIOLOGIST: [Denies headaches or blurring of vision.] RESP: [No cough, chest pain or SOB.] CVS: [No palpitaions.] GI: [abdominal pain with nausea and vomiting, no diarrhea or constipation.] KATHI: [No dysuria or hematuria.] Musculoskeletal: [No swelling or joint pain.] BACK: [No pain or swelling.] All other systems are reviewed and essentially negative pertinent positives in HPI. PHYSICAL EXAMINATION: GENERAL: [Patient is lying comfortably in bed, not in any obvious distress.] HEAD: [Normal with no signs of head trauma.] EYES: [Not pale not jaundiced afebrile to touch.] ENT: [ Normal.] NECK: [Supple,no tenderness,no lymphadenopathy,no masses,no thyromegaly ,no bruits, no JVD.] LUNGS: [Clear breath sounds bilaterally. No wheezes, rales, or rhonchi.] HEART: [Regular rate and rhythm. Normal S1 and S2, without murmurs, rub or gallop.] VASC: [No edema. Peripheral pulses normal and equal in all extremities.] ABD: [Bowel sounds present,soft, RUQ tender, no masses, no organomegaly.] : [Normal, no suprapubic tenderness.] LYMPH: [No lymphadenopathy noted.] EXT: [ Warm soft, non tender.] SKIN: [ No rashes or lesions.] NEURO: [ Awake Alert and oriented x3.] Vital Signs (last 8hr) Date Time Temp Pulse Resp B/P (MAP) Pulse Ox O2 Delivery O2 Flow Rate FiO2 04/09/25 07:44 97.9 68 18 99/57 99 Room Air 04/09/25 02:15 98.2 68 20 122/69 96 Room Air 04/09/25 02:12 96 Room Air* 0 21 LABORATORY: [ ] Hematology Labs: Test 04/09/25 06:47 04/07/25 20:09 Range/Units White Blood Count 6.5 # 4.8-10.8 K/uL Red Blood Count 4.05 L 4.50-6.20 MIL/uL Hemoglobin 12.1 L 14.0-18.0 g/dL Hematocrit 36.2 L 42-54 % Mean Corpuscular Volume 89.4 79-99 fL Mean Corpuscular Hemoglobin 29.9 27.0-33.0 pg Mean Corpuscular Hemoglobin Concent 33.4 32.0-36.0 g/dL Red Cell Distribution Width 13.0 11.0-15.5 % Platelet Count 306 130-400 K/uL Mean Platelet Volume 9.1 7.5-10.5 fL Immature Granulocyte % (Auto) 0.5 0-1 % Neutrophils (%) (Auto) 54.0 40.0-77.0 % Lymphocytes (%) (Auto) 33.3 21.0-51.0 % Monocytes (%) (Auto) 9.1 3.0-13.0 % Eosinophils (%) (Auto) 2.6 0.0-8.0 % Basophils (%) (Auto) 0.5 0.0-5.0 % Neutrophils # (Auto) 3.5 1.8-7.7 K/uL Lymphocytes # (Auto) 2.2 1.0-4.8 K/uL Monocytes # (Auto) 0.6 0.1-1.0 K/uL Eosinophils # (Auto) 0.17 0.00-0.70 K/uL Basophils # (Auto) 0.03 0.00-0.20 K/uL Absolute Immature Granulocyte (auto 0.03 0-1 K/uL Nucleated Red Blood Cells 0.0 0.0-0.19 % White Cell Morphology Comment See comments Chemistry Labs: Test 04/09/25 06:47 04/09/25 05:54 04/07/25 20:09 Range/Units Sodium Level 142 136-145 mmol/L Potassium Level 3.9 3.5-5.1 mmol/L Chloride Level 106 101-111 mmol/L Carbon Dioxide Level 31 21-32 mmol/L Blood Urea Nitrogen 13 7-18 mg/dL Creatinine 1.0 0.5-1.3 mg/dL Glomerular Filtration Rate Calc 96 >90 mL/min Random Glucose 93 70-105 mg/dL Hemoglobin A1c 5.2 4.0-6.0 % Estimated Average Glucose (eAG) 103 70-126 mg/dL Lactic Acid Level 0.7 L 0.8-2.5 mmol/L Total Calcium 8.5 8.5-10.1 mg/dL Magnesium Level 2.00 1.80-2.40 mg/dL Total Bilirubin 0.8 0.2-1.0 mg/dL Direct Bilirubin 0.2 0.0-0.3 mg/dL Aspartate Amino Transf (AST/SGOT) 21 10-37 U/L Alanine Aminotransferase (ALT/SGPT) 45 # 12-78 U/L Alkaline Phosphatase 53 50-136 U/L Ammonia < 10 L 11-32 umol/L Total Creatine Kinase 151 # 21-232 U/L B-Type Natriuretic Peptide 58 0-100 pg/mL Total Protein 6.3 6.0-8.3 g/dL Albumin 3.3 L 3.5-5.0 g/dL Amylase Level 170 H 25-115 U/L Lipase 32 16-77 U/L Procalcitonin < 0.05 L 0.05-0.5 ng/mL Whole Blood Glucose 95 70-110 MG/DL Troponin I High Sensitivity < 4 L 4-75 ng/L DIAGNOSTICS / RADIOLOGY: [Copy/Paste Echos/Imaging Report here] ASSESSMENT: [] PLAN: diet ambulate ice packs to left groin ok to dc in am f/u in my office in 2 weeks KATTY CEDILLO MD Apr 09, 2025 09:48
--- NOTE | 2025-04-09 10:00 | NUR ---
ROUND DR ALANIZ AT BEDSIDE CLEARED FROM SURGERY [place] [facility] DC HOME ICE PACKS EVER HOUR FOR 15 MINS
--- NOTE | 2025-04-09 10:21 | NUR ---
DCP: HOME Pt currently lives with [facility] [phone]. Pt does not have any DME, home health, or provider services. Pt states that he is able to complete ADLs independently. PCP is the [facility] [place] and uses [facility] for any RX needs. At [place] pt will want to go home and family will assist with transportation. Addendum: 04/09/25 at 1023 by MERRY GALLEGOS SS Amended: Links added.
[2025-04-09 11:23] VITALS: BP 109/64; PULSE 71; RESP 18; TEMP 98
[2025-04-09 16:05] VITALS: BP 101/58; PULSE 72; RESP 18; TEMP 98.2
--- NOTE | 2025-04-09 17:08 | PN ---
INFECTIOUS DISEASE PROGRESS NOTE Date of Service: Apr 09, 2025 SUBJECTIVE: Patient was seen and examined at bedside in room 327. Patient is awake, alert and oriented. The WBC has trended down to 6.5 and no reports of fever, temperature is 98.1. The left groin incision is clean and dry. Steri-Strips intact. Patient is currently on vancomycin and ceftriaxone. No reports of nausea or vomiting. From Infectious Disease standpoint patient will not need antibiotics on discharge. PHYSICAL EXAM EYES: Anicteric. Pupils equal and reactive. HENT: No oral thrush seen, moist Oral mucosa. NECK: Supple, no JVD or thyromegaly. LUNGS: Good air entry. No rales, no rhonchi. CARDIOVASCULAR: S1, S2 regular. No murmur heard. ABDOMEN: Soft, non tender, bowel sounds present, no organomegaly. Left inguinal area surgical incision. CENTRAL NERVOUS SYSTEM: Awake, alert, oriented x 3. SKIN: No rashes, no swelling. LYMPHATICS: No peripheral lymphadenopathy. MUSCULOSKELETAL: No joint swelling, erythema or tenderness. EXTREMITIES: No cyanosis or clubbing. BACK: No deformity, no pressure ulcer. GENITOURINARY: No dysuria or hematuria. Vital Sign (Last 12 Hours) 04/09/25 04/09/25 04/09/25 07:44 11:23 16:05 Temp 97.9 98.1 98.2 Pulse 68 71 72 Resp 18 18 18 B/P (MAP) 99/57 109/64 101/58 Pulse Ox 99 97 98 O2 Delivery Room Air Room Air Room Air Intake & Output (last 24hrs) 04/08/25 04/08/25 04/09/25 15:00 23:00 07:00 Intake Total 750.0 ml Balance 750.0 ml LABS: Laboratory: Test 04/09/25 10:58 04/09/25 06:47 04/09/25 01:46 04/07/25 20:58 Range/Units Whole Blood Glucose 121 H 70-110 MG/DL White Blood Count 6.5 # 4.8-10.8 K/uL Red Blood Count 4.05 L 4.50-6.20 MIL/uL Hemoglobin 12.1 L 14.0-18.0 g/dL Hematocrit 36.2 L 42-54 % Mean Corpuscular Volume 89.4 79-99 fL Mean Corpuscular Hemoglobin 29.9 27.0-33.0 pg Mean Corpuscular Hemoglobin Concent 33.4 32.0-36.0 g/dL Red Cell Distribution Width 13.0 11.0-15.5 % Platelet Count 306 130-400 K/uL Mean Platelet Volume 9.1 7.5-10.5 fL Immature Granulocyte % (Auto) 0.5 0-1 % Neutrophils (%) (Auto) 54.0 40.0-77.0 % Lymphocytes (%) (Auto) 33.3 21.0-51.0 % Monocytes (%) (Auto) 9.1 3.0-13.0 % Eosinophils (%) (Auto) 2.6 0.0-8.0 % Basophils (%) (Auto) 0.5 0.0-5.0 % Neutrophils # (Auto) 3.5 1.8-7.7 K/uL Lymphocytes # (Auto) 2.2 1.0-4.8 K/uL Monocytes # (Auto) 0.6 0.1-1.0 K/uL Eosinophils # (Auto) 0.17 0.00-0.70 K/uL Basophils # (Auto) 0.03 0.00-0.20 K/uL Absolute Immature Granulocyte (auto 0.03 0-1 K/uL Nucleated Red Blood Cells 0.0 0.0-0.19 % Sodium Level 142 136-145 mmol/L Potassium Level 3.9 3.5-5.1 mmol/L Chloride Level 106 101-111 mmol/L Carbon Dioxide Level 31 21-32 mmol/L Blood Urea Nitrogen 13 7-18 mg/dL Creatinine 1.0 0.5-1.3 mg/dL Glomerular Filtration Rate Calc 96 >90 mL/min Random Glucose 93 70-105 mg/dL Hemoglobin A1c 5.2 4.0-6.0 % Estimated Average Glucose (eAG) 103 70-126 mg/dL Lactic Acid Level 0.7 L 0.8-2.5 mmol/L Total Calcium 8.5 8.5-10.1 mg/dL Magnesium Level 2.00 1.80-2.40 mg/dL Total Bilirubin 0.8 0.2-1.0 mg/dL Direct Bilirubin 0.2 0.0-0.3 mg/dL Aspartate Amino Transf (AST/SGOT) 21 10-37 U/L Alanine Aminotransferase (ALT/SGPT) 45 # 12-78 U/L Alkaline Phosphatase 53 50-136 U/L Ammonia < 10 L 11-32 umol/L Total Creatine Kinase 151 # 21-232 U/L B-Type Natriuretic Peptide 58 0-100 pg/mL Total Protein 6.3 6.0-8.3 g/dL Albumin 3.3 L 3.5-5.0 g/dL Amylase Level 170 H 25-115 U/L Lipase 32 16-77 U/L Procalcitonin < 0.05 L 0.05-0.5 ng/mL Influenza Type A Antigen Negative For Type A NEGATIVE Influenza Type B Antigen Negative For Type B NEGATIVE SARS-CoV-2 Antigen (Rapid) PRESUMPTIVE NEGATIVE NEGATIVE Urine Color LIGHT-YELLOW YELLOW Urine Appearance CLEAR CLEAR Urine pH 6.5 5.0-8.0 Urine Specific Moran 1.016 1.001-1.031 Urine Protein NEGATIVE NEGATIVE mg/dL Urine Glucose (UA) NEGATIVE NEGATIVE mg/dL Urine Ketones NEGATIVE NEGATIVE mg/dL Urine Occult Blood MODERATE H NEGATIVE Urine Nitrate NEGATIVE NEGATIVE Urine Bilirubin NEGATIVE NEGATIVE mg/dL Urine Urobilinogen 0.2 0.2-1.0 mg/dL Urine Leukocyte Esterase NEGATIVE NEGATIVE Genna/uL Urine RBC 26-50 H 0-1 /HPF Urine WBC 2-5 H 0-1 /HPF Urine Squamous Epithelial Cells RARE 0-2 /HPF Urine Bacteria None None Seen /HPF Urine Opiates Screen NEGATIVE NEGATIVE Urine Barbiturates Screen NEGATIVE NEGATIVE Urine Phencyclidine Screen NEGATIVE NEGATIVE Urine Amphetamines Screen NEGATIVE NEGATIVE Urine Benzodiazepines Screen POSITIVE H NEGATIVE Urine Cocaine Screen NEGATIVE NEGATIVE Urine Marijuana (THC) Screen NEGATIVE NEGATIVE Test 04/07/25 20:09 Range/Units White Cell Morphology Comment See comments Troponin I High Sensitivity < 4 L 4-75 ng/L ASSESSMENT: Palpitation. Dehydration. Leukocytosis results. Recent left hernia repair. PLAN: Continue IV fluids. From Infectious Disease standpoint no antibiotics needed on discharge. This case was reviewed and discussed with my supervising physician and the above assessment and plan was formulated and agreed upon. ATTESTATION BY PHYSICIAN I have seen and examined the patient. I reviewed the documentation, medical decision making, and treatment plan as noted by the mid-level provider above. I agree with the findings and plan of care. YOCASTA BROWER MD, [facility] Apr 09, 2025 17:08
--- NOTE | 2025-04-09 18:30 | NUR ---
DISCHARGE PT PIV DC'D PT VERBALIZED UNDERSTANDING OF DISCHARGE INSTRUCTION PT HAD NO FURTHER QUESTIONS AT TIME OF DISCHARGE PT GATHERED AND TOOK ALL BELONGINGS
--- NOTE | 2025-04-10 11:18 | DS ---
Discharge Summary Hospital Course Summary: This is a 44 year old male who presented to ED s/p hernia repair done on 04/07/[address] at the [facility] in [place]. Patient reported that after his surgery he was sent home and when he arrived he was resting. Soon after he started feeling palpitations, dizziness, nausea and right hand numbness. He also reported dry mouth, dizziness in episode of nausea upon arrival to the ED. There was no fever or chest pain. On evaluation in the ED, he had raised blood pressure of 155/65. He was found to have leukocytosis (WBC 16.1) with urinalysis negative for leukocytes and nitrates. Toxicology results showed positive for Benzodiazepines. CT abdomen/pelvis showed moderate inflammation with changes in the left inguinal scrotal region and left lower anterior abdominal wall. Focal nodular inflammatory thickening of the fascia in the left iliac fossa region was seen. The patient was started on Vancomycin and cefepime empirically for possible infection. He was admitted for further evaluation. Over the hospital course patient started improving. His WBC trended down to 6.5. He remained afebrile and clinically improved resolution of his symptoms. His left groin incision remained clean and dry throughout. Echocardiogram showed mild right atrial dilation with LVEF of 55%. He started ambulating and passed stool as well. Infectious disease was consulted and recommended no antibiotics needed at discharge. He was discharged in stable condition with resolution of presenting symptoms and instructions for outpatient care. Mattress Renovator(s): General Surgery: KATTY MATA MD Infectious disease: YOCASTA BROWER MD Procedure(s): [place] [id number] [address] IMAGING REPORT Signed PATIENT: HERB DEL ROSARIO MR#: [id number] : 1980 SEX: M AGE: 44 LOCATION: EDHIP ORDER 124 STATUS: ADM IN REPORT#: [id number] SERVICE 1240 REASON: chf, cp ORDERING PHYSICIAN: JOSIAH WARE APRN PROCEDURE: ECHO CMP - ECHO 2-D COMPLETE APPROVED REPORT EXAM: Two-dimensional and M-mode echocardiogram with Doppler and color Doppler. INDICATION ICD: Chest Pain Heart Failure 2D Dimensions RVDd 4.8 cm LVEF(%) 56.7 (>50%) LVED Vol(simp.) 108.0 mL IVSd 0.6 (0.7-1.1cm) FS(%) 30 % LVES Vol(simp.) 54.0 mL LVDd 4.9 (3.8-5.6cm) LA (2D) 3.3 (1.6-4.0cm) LVEF(%, simp.) 50 % PWd 0.8 (0.7-1.1cm) Ao Root(2D) 2.8 (2.0-3.7cm) LA ESV INDEX (BP) 37.54 mL/m2 LVDs 3.5 (2.5-4.0cm) LVOT diam 2.2 (1.8-2.4cm) IVC diam 1.4 cm Deformation Strain Apical 4 -15.8 % Apical 2 -17.5 % Apical 3 -16.3 % Global Strain -16.5 % M-Mode Dimensions LA (MM) 3.5 (1.6-4.0cm) Ao Root(MM) 2.8 (2.0-3.7cm) Aortic Valve AoV Vmax 1.3 m/s Ao Peak GR 7.2 mmHg LVOT Vmax 1.3 m/s AoV VTI 0.3 m Ao Mean GR 4.0 mmHg LVOT VTI 0.25 m ASIA (VMAX) 3.95 cm2 ASIA (VTI) 3.3 cm2 Mitral Valve MV E Vmax 98.0 cm/s DECEL Time 194 ms MV A Vmax 40.7 cm/s P 1/2 T 98 ms E/A ratio 2.4 MVA (PHT) 2.2 cm2 TDI E/E' Medial 8.5 E/E' Lateral 6.3 Medial E' Peak V 11.56 cm/s Lateral E' Peak V 15.45 cm/s Pulmonary Valve PV Vmax 1.0 m/s PV VTI 0.21 m PV Mean GR 2.1 mmHg PV Peak GR 3.7 mmHg Tricuspid Valve TR Vmax 2.0 m/s RVSP 16.3 mmHg TR Peak GR 16.4 mmHg Left Ventricle The left ventricle is normal size. There is normal LV segmental wall motion. There is normal left ventricular wall thickness. LVEF is 55%. The left ventricul ar diastolic function is normal. Right Ventricle The right ventricle is normal size. The right ventricular systolic function is normal. Atria The left atrium is normal. The right atrium is mildly dilated. Cannot exclude right atrial thrombus in transit. Aortic Valve The aortic valve is normal in structure. No aortic regurgitation is present. There is no aortic valvular stenosis. Mitral Valve The mitral valve is normal in structure. Mitral regurgitation is trace. There is no mitral valve stenosis. Tricuspid Valve The tricuspid valve is normal in structure. There is trace tricuspid valve regurgitation noted. Pulmonic Valve The pulmonary valve is normal in structure. There is no pulmonic valvular regurgitation. Great Vessels The aortic root is normal in size. The IVC is normal in size and collapses >50% with inspiration. Cannot exclude thrombus in transit in IVC. Pericardium There is no pericardial effusion. Conclusion LVEF is 55%. The right atrium is mildly dilated. Cannot exclude right atrial thrombus in transit. DICTATED BY: AMY TOWNSEND MD DATE: 04/08/25 1518 ELECTRONICALLY SIGNED BY: AMY TOWNSEND MD DATE: 04/08/[address] [address] IMAGING REPORT Signed PATIENT: HERB DEL ROSARIO MR#: [id number] : 1980 SEX: M AGE: 44 LOCATION: EDH ORDER 30 STATUS: REG ER REPORT#: [id number] SERVICE 29 REASON: pain ORDERING PHYSICIAN: LOLY GOODWIN MD PROCEDURE: ABD PEL W - CT ABDOMEN/PELVIS W/CONTRAST EXAM: CT Abdomen and Pelvis with IV contrast CLINICAL HISTORY: Pain. TECHNIQUE: Thin collimated axial CT images of the abdomen and pelvis were obtained, with sagittal and coronal reformatted images also submitted. A CT scan is done according to ALARA (As Low As Reasonably Achievable). COMPARISON: CT scan of the abdomen and pelvis. 05/27/2012. FINDINGS: Unremarkable visualized lung parenchyma. There is no focal abnormality appreciated within the liver, gallbladder, pancreas, spleen, adrenals, or kidneys. There is no obvious bowel wall thickening. Bowel loops are normal in caliber without evidence of obstruction or ileus. The appendix is unremarkable. There is no abnormality within the urinary bladder. Unremarkable reproductive organs. Trace free fluid in the cul-de-sac. No lymphadenopathy. No pneumoperitoneum. Moderate inflammation with emphysematous changes in the left inguinoscrotal region and lower left anterior abdominal wall. Focal nodular inflammatory thickening of the fascia in the left iliac fossa region measuring 3.7 x 3.0 x 2.2 cm. No gross abnormality in the abdominal vessels. There is no acute osseous abnormality. IMPRESSIONS: Moderate inflammation with emphysematous changes in the left inguinoscrotal region and left lower anterior abdominal wall. Focal nodular inflammatory thickening of the fascia in the left iliac fossa region. The findings are new compared to the previous CT dated 05/27/2012. /[place] DICTATED BY: MT JACKMAN Jr., MD DATE: 04/08/2543 ELECTRONICALLY SIGNED BY: MT JACKMAN Jr., MD DATE: 04/08/2543 [place] [id number] IMAGING REPORT Signed PATIENT: HERB DEL ROSARIO MR#: [id number] : 1980 SEX: M AGE: 44 LOCATION: [facility] ORDER 57 STATUS: REG REPORT#: [id number] SERVICE 56 REASON: CHEST PAIN ORDERING PHYSICIAN: LOLY GOODWIN MD PROCEDURE: CXR1VW - CHEST 1VW EXAM: CR Chest, 1 view CLINICAL HISTORY: Chest pain. COMPARISON: Chest radiograph dated 01/30/2020. FINDINGS: The lungs show no infiltrates or other acute findings. No pleural effusion or pneumothorax. The cardiomediastinal silhouette is within normal limits. No acute osseous abnormality. IMPRESSION: No acute cardiopulmonary process is evident. No interval changes. /[place] DICTATED BY: MT JACKMAN Jr., MD DATE: 04/07/252318 ELECTRONICALLY SIGNED BY: MT JACKMAN Jr., MD DATE: 04/07/252318 Assessment/Plan: ASSESSMENT: Acute symptomatic tachycardia POA S/p hernia repair 04/07/[address] Omar ESCOBAR Severe anxiety POA Discharge Instructions: Monitor incision for signs of redness, drainage, or swelling Return to ED for worsening abdominal pain, confusion May resume regular diet and activity as tolerated Home Medications: Discontinued Scripts Acetaminophen with Codeine (Acetaminophen-Cod #3 Tablet) 1 Each Tablet, 1 TAB PO Q4H PRN for PAIN LEVEL 7 TO 10, #7 TAB Prov:COSTA OWENP 01/13/22 Naproxen (Naproxen) 500 Mg Tablet., 500 MG PO BIDPC, #15 TAB Prov:FITTINGCOSTAP 01/13/22 Amoxicillin/Potassium Clav (Amox Tr-K Clv 875-125 mg Tab) 1 Each Tablet, 1 EACH PO BID, #14 TAB Prov:FITTINGCOSTAP 01/13/22 Time spent arranging discharge: 31-60 minutes ATTESTATION BY PHYSICIAN I have seen and examined the patient. I reviewed the documentation, medical decision making, and treatment plan as noted by the resident provider above. I agree with the findings and plan of care. Shaheed Young MD, SUZIT MD Apr 10, 2025 11:18
== END 2025-04-09 18:55 | disposition home or self-care (01) | DRG 310 ==
LOC: EDH 19:08 → EDHIP 19:09 → 3DH 04-09 01:57
PROVIDERS: ADMIT Internal Medicine; ATTEND Internal Medicine
DX: R00.0 Tachycardia, unspecified (principal); R00.2 Palpitations; E86.0 Dehydration; F41.9 Anxiety disorder, unspecified; I34.0 Nonrheumatic mitral (valve) insufficiency
CPT/HCPCS: 36415; 71045; 74177; 80048; 80076; 80305; 81001; 82140; 82150; 82550; 82948; 83036; 83605; 83690; 83735; 83880; 84145; 84484; 85025; 87426; 87804; 93005; 93306; 93356; 96374; 99285; G0378; J0692; J0696; J1644; J1885; J2405; J3490; Q9967; J3370

== ENCOUNTER 2025-06-04 16:31 | Emergency (ER) | payer SELFPAY ==
[~2025-06-04] VITALS: Ht 162.6 cm; Wt 77.1 kg
[2025-06-04 16:49] VITALS: BP 115/72; PULSE 110; RESP 16; TEMP 98; O2SAT 98
--- NOTE | 2025-06-04 17:14 | ERN ---
ED Note History of Present Illness Stated Complaint: RAPID HEART RATE Chief Complaint: Rapid Heart Rate Time Seen by MD: 17:00 Dictation: IS A 44-YEAR-OLD MALE COMING IN TODAY WITH BOUNDING PULSES AND PALPITATIONS HE HAS HAD OFF AND ON FOR THE LAST MONTH. HE DENIES CHEST PAIN BACK PAIN NO SOB NO NAUSEA VOMITING. HE DOES ADMIT TO INTERMITTENT USE OF COCAINE LAST USED LAST SUNDAY SAID HE ONLY DID THREE BUMPS. HE STATES HE HAS NO HISTORY OF HYPERTENSION DIABETES CAD OR GRADES 1 THRU 5 TEACHER'S. PAIN PRESENT TIME. PRIMARY CARE DOCTOR PATIENT WAS STRONGLY ADVISED THAT COCAINE TODAY IS BEING MIXED WITH FENTANYL METHAMPHETAMINE ETC. AND COULD BE VERY DANGEROUS OR LETHAL HE WAS STRONGLY ADVISED TO STOP DOING THAT OR RISK HEART ATTACK, STROKE, INSTANT . STATES HE WAS AWARE OF THE RISK Allergies: Coded Allergies: No Known Drug Allergies (Unverified Allergy, Unknown, 01/30/20) Home Meds No Active Prescriptions or Reported Meds Past Medical History Past Medical History: No Pertinent History Surgical History: Other Surgical History Other: UMBILICAL HERNIA REPAIR 04/07/25 RN Note Reviewed/Agreed w/PFSH: Yes Review of System Dictation A NORMAL ROS CONSTITUTIONAL: NEGATIVE EXCEPT FOR HPI HEAD/FACE: NEGATIVE EXCEPT FOR HPI EENT: NEGATIVE EXCEPT FOR HPI RESPIRATORY: NEGATIVE EXCEPT FOR HPI PALPITATION GASTROINTESTINAL/ABDOMINAL: NEGATIVE EXCEPT FOR HPI GENITOURINARY: NEGATIVE EXCEPT FOR HPI MUSCULOSKELETAL: NEGATIVE EXCEPT FOR HPI INTEGUMENTARY: NEGATIVE EXCEPT FOR HPI NEUROLOGICAL/PSYCH: NEGATIVE EXCEPT FOR HPI HEMATOLOGIC/LYMPHATIC: NEGATIVE EXCEPT FOR HPI ALL SYSTEMS NEGATIVE, EXCEPT NOTED ABOVE. 13 POINT REVIEW OF SYSTEMS ASSESSED AND ALL NEGATIVE EXCEPT FOR ABOVE. Initial Vital Sign VS Vital Signs Date Time Temp Pulse Resp B/P (MAP) Pulse Ox O2 Delivery O2 Flow Rate FiO2 06/04/25 16:32 98.1 112 18 117/75 97 Room Air 06/04/25 16:49 0 21 Physical Exam Dictation VITAL SIGNS REVIEWED GENERAL APPEARANCE: ALERT, ORIENTED X 3, NO ACUTE DISTRESS, WELL DEVELOPED, NOURISHED. HEAD AND FACE: NON-TRAUMATIC. EYES: PERRL, PINK CONJUNCTIVAS, EYELID NO TRAUMA, ANTERIOR CHAMBER WITH ARCUS SENILIS. EARS: PINNAS INTACT AND NO SIGNS OF TRAUMA OR ERYTHEMA EAR CANALS CLEAR AND NO DISCHARGE TM NO ERYTHEMA NOSE: NO DISCHARGE, NO BLEEDING. OROPHARYNX: MOUTH NORMAL, TONGUE PINK, PHARYNX CLEAR,NO ERYTHEMA, TONSILS NO EXUDATES, NO ABSCESSES NOTED, MUCOUS MEMBRANE MOIST NECK: SUPPLE, NON-TENDER, NO THYROMEGALY, NO MASSES, NO JVD, NO BRUITS BREAST:DEFERRED CHEST:NO TENDERNESS, NO CREPITUS, NO PARADOXICAL MOVEMENT, NO RETRACTIONS LUNGS:CLEAR, WELL-VENTILATED, SYMMETRIC, NO RALES, NO WHEEZING, NO RHONCHI, NO STRIDOR, GOOD BREATH SOUNDS BILATERALLY HEART: TACHYCARDIC AND REGULAR, NO MURMUR, NO GALLOPS VASCULAR: NO PERIPHERAL EDEMA, ABDOMEN: SOFT, POSITIVE BOWEL SOUNDS, NONDISTENDED, NO GUARDING, NONTENDER, NO REBOUND, NO MASSES NO HEPATOMEGALY, NO SPLENOMEGALY, NO ABARCA'S SIGN, NO HERNIAS. RECTAL: DEFERRED GENITAL: DEFERRED NEUROLOGICAL: NORMAL SPEECH, MOTOR FUNCTION INTACT, SENSORY FUNCTION INTACT MUSCULOSKELETAL: NECK NONTENDER, FULL RANGE OF MOTION, BACK NONTENDER, FULL RANGE OF MOTION, EXTREMITIES: NONTENDER, FULL RANGE OF MOTION SKIN: COLOR PINK, DRY, NO TURGOR, NO RASH, NO LACERATIONS, NO ABRASIONS, NO CONTUSIONS. LYMPHATIC: DEFERRED Results (Laboratory/Radiology) Laboratory/Radiology Laboratory Tests Test 06/04/25 16:57 White Blood Count 8.0 K/uL (4.8-10.8) Red Blood Count 4.62 MIL/uL (4.50-6.20) Hemoglobin 13.7 g/dL (14.0-18.0) L Hematocrit 40.2 % (42-54) L Mean Corpuscular Volume 87.0 fL (79-99) Mean Corpuscular Hemoglobin 29.7 pg (27.0-33.0) Mean Corpuscular Hemoglobin Concent 34.1 g/dL (32.0-36.0) Red Cell Distribution Width 12.6 % (11.0-15.5) Platelet Count 390 K/uL (130-400) Mean Platelet Volume 8.9 fL (7.5-10.5) Immature Granulocyte % (Auto) 1.0 % (0-1) Neutrophils (%) (Auto) 78.0 % (40.0-77.0) H Lymphocytes (%) (Auto) 14.3 % (21.0-51.0) L Monocytes (%) (Auto) 5.9 % (3.0-13.0) Eosinophils (%) (Auto) 0.5 % (0.0-8.0) Basophils (%) (Auto) 0.3 % (0.0-5.0) Neutrophils # (Auto) 6.2 K/uL (1.8-7.7) Lymphocytes # (Auto) 1.1 K/uL (1.0-4.8) Monocytes # (Auto) 0.5 K/uL (0.1-1.0) Eosinophils # (Auto) 0.04 K/uL (0.00-0.70) Basophils # (Auto) 0.02 K/uL (0.00-0.20) Absolute Immature Granulocyte (auto 0.08 K/uL (0-1) Nucleated Red Blood Cells 0.0 % (0.0-0.19) Sodium Level 136 mmol/L (136-145) Potassium Level 3.6 mmol/L (3.5-5.1) Chloride Level 100 mmol/L (101-111) L Carbon Dioxide Level 27 mmol/L (21-32) Blood Urea Nitrogen 13 mg/dL (7-18) Creatinine 0.8 mg/dL (0.5-1.3) Glomerular Filtration Rate Calc 113 mL/min (>90) Random Glucose 130 mg/dL (70-105) H Total Calcium 9.1 mg/dL (8.5-10.1) Total Creatine Kinase 156 U/L (21-232) Troponin I High Sensitivity 4.9 ng/L (4-75) Labs Reviewed?: Yes EKG Comment: EKG SINUS TACHYCARDIA/HEART RATE 113/EARLY REPOLARIZATION SEEN LEADS V1 V2 ED Course ED Course Orders Procedure Category Date Status Time Cardiac Panel LAB 06/04/25 Complete 16:54 Cbc With Differential LAB 06/04/25 Complete 17:11 12 Lead Ekg Tracing- EKG 06/04/25 Logged Technical 17:11 Basic Metabolic Panel LAB 06/04/25 Complete 17:11 Vital Signs Date Time Temp Pulse Resp B/P (MAP) Pulse Ox O2 Delivery O2 Flow Rate FiO2 06/04/25 16:49 98.1 110 16 115/72 98 Room Air* 0 21 06/04/25 16:32 98.1 112 18 117/75 97 Room Air 1728/PATIENT WILL BE DISCHARGED HOME WITH SIDE EFFECTS OF COCAINE ABUSE. HE REMAINS MILDLY TACHYCARDIC AT 01:10 NO CHEST PAIN AT THIS TIME. CARDIAC WORKUP IS NEGATIVE PATIENT WAS STRONGLY ADVISED TO STOP COCAINE OR RISK HEART ATTACK STROKE OR DUE TO NOW BEING MIXED WITH FENTANYL OR AMPHETAMINE. HE STATED HE UNDERSTOOD THE WRIST. HEART Score Response (Comments) Value EKG: Normal 0 Age: < 45yrs (0) 0 Risk Factors: No known risk factors (0) 0 Initial Troponin: Normal limit (0) 0 Total 0 Medical Decision Making MDM MDM: DIFFERENTIAL DIAGNOSIS: ACS/AMI/ELECTROLYTE IMBALANCE/DEHYDRATION/DRUG ABUSE/SIDE EFFECTS OF COCAINE RATIONALE: TESTS CONSIDERED AND ORDERED SECONDARY TO SHARED DECISION MAKING INCLUDE: EKG/LABS PREVIOUS OUTSIDE RECORDS REVIEWED: OLD ER VISITS. RISK OF COMPLICATION AND/OR MORBIDITY OR MORTALITY OF PATIENT MANAGEMENT: NONE MEDICATIONS-PER MEDICATION RECONCILIATION NEED FOR HOSPITALIZATION: PATIENT DOES NOT MEET CRITERIA FOR HOSPITALIZATION. NONE NEED FOR EMERGENCY MAJOR/MINOR SURGERY: NO THERE ARE NO SOCIAL CONCERNS WITH THIS PATIENT. PRESCRIPTION DRUG MANAGEMENT NONE PRESCRIPTIONS WILL INCLUDE SYMPTOMATIC CARE PATIENT'S PRIOR EXTERNAL MEDICAL RECORDS FROM OTHER ER VISITS WERE REVIEWED BY ME INDICATED. PRIOR TESTING AND RESULTS FROM PREVIOUS VISITS WERE REVIEWED. PRIOR TESTS WERE TAKEN INTO ACCOUNT WITH MEDICAL DECISION MAKING AND RESOURCE UTILIZATION, INDEPENDENT HISTORIAN/HISTORIANS WERE USED TO OBTAIN COMPLETE MEDICAL HISTORY. I INDEPENDENTLY INTERPRETED THE TEST THAT WERE PERFORMED, RESULTS WERE REVIEWED BY ME AND CONSIDERED FINDINGS ON RADIOLOGY IF ORDERED. MEDICAL MANAGEMENT AND EXAMINATION INTERPRETATION DISCUSSIONS WERE HAD BY ME WITH OTHER QUALIFIED HEALTHCARE PROFESSIONALS INDICATED FOR THE PATIENT'S CARE. DX & DISP Disposition: Discharge Departure Impression: Primary Impression: Sinus tachycardia Additional Impression: Cocaine use Condition: Stable Scripts No Active Prescriptions or Reported Meds Additional Instructions: FOLLOW-UP WITH PRIMARY CARE PROVIDER IN 1 TO 2 DAYS. TAKE MEDICATIONS DIRECTED HERE IN THE EMERGENCY ROOM. OKAY TO CONTINUE HOME MEDICATIONS UNLESS OTHERWISE DISCUSSED DURING YOUR VISIT IN THE EMERGENCY ROOM TODAY. RETURN TO YOUR NEAREST EMERGENCY ROOM IF SYMPTOMS WORSEN OR IF THERE IS NO IMPROVEMENT. CALL 911 IF YOU NEED IMMEDIATE ASSISTANCE. TAKE TYLENOL OR MOTRIN [id number] NEEDED AND IF NO CONTRAINDICATIONS ARE PRESENT. INCREASE ORAL HYDRATION. A WOUND CULTURE OR URINE CULTURE WAS ORDERED HERE IN THE EMERGENCY ROOM DEPARTMENT PLEASE FOLLOW-UP WITH PRIMARY CARE PROVIDER AND ADVISE THEM TO GET REPEAT PORTS FROM OUR FACILITY. IF YOU HAD ANY GISELL WRAP/SPLINTS THAT WERE APPLIED HERE, PLEASE DO NOT REMOVE THEM UNTIL YOU SEE YOUR PRIMARY CARE OR SPECIALTY. STOP COCAINE AND ALL ILLEGAL DRUG USE OR RISK HEART ATTACK, STROKE, INSTANT . BE ADVISED THAT COCAINE HAS BEEN MIXED WITH METHAMPHETAMINE AND FENTANYL AND CAN KILL YOU FOLLOW UP WITH YOUR PRIMARY CARE DOCTOR IN THE NEXT 1-2 DAYS. NO COFFEE, NO ICE TEA NO CAFFEINE OR STIMULANTS OF ANY KIND UNTIL CLEARED BY YOUR DOCTOR. FOLLOW UP WITH [facility] 1 [facility] 5 [facility]ER[facility] IN THE NEXT 1-2 DAYS. , CALL FOR AN APPOINTMENT. Referrals: SELF,REFERRAL (PCP) MARK MISHRA MD Time of Disposition: 17:31 I have reviewed the case, and I agree with, Diagnosis and Plan JULIETTE VENCES NP Jun 04, 2025 17:14
[2025-06-04 17:19] LABS: CREATINE KINASE, TOTAL 156.0 U/L (21-232)
[2025-06-04 17:24] LABS: CREATININE 0.8 mg/dL (0.5-1.3); GLOMERULAR FILTR. RATE CALC 113.0 mL/min (>90); GLUCOSE,RANDOM 130.0 mg/dL (70-105); SODIUM SERUM 136.0 mmol/L (136-145); UREA NITROGEN, BLOOD 13.0 mg/dL (7-18)
[2025-06-04 17:25] LABS: IMMATURE GRANULOCYTE ABSOLUTE 0.08 K/uL (0-1); NUCLEATED RED BLOOD CELLS 0.0 % (0.0-0.19); PLATELET COUNT (AUTO) 390 K/uL (130-400); RED BLOOD CELL COUNT(AUTO) 4.62 MIL/uL (4.50-6.20); RED CELL DISTRIBUTION WIDTH 12.6 % (11.0-15.5); WHITE BLOOD COUNT (AUTO) 8.0 K/uL (4.8-10.8)
--- NOTE | 2025-06-05 03:06 | EKG ---
[facility] Test Date: 2025-06-04 Test Time: 16:37:43 Pat Name: ARUN HOROWITZDEZ Department: 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
== END 2025-06-04 17:56 | disposition home or self-care (01) ==
LOC: EDH 16:31
DX: R00.0 Tachycardia, unspecified (principal); F14.90 Cocaine use, unspecified, uncomplicated
CPT/HCPCS: 36415; 80048; 82550; 84484; 85025; 93005; 99284

== ENCOUNTER 2025-06-08 01:26 | Emergency (ER) | payer SELFPAY ==
[~2025-06-08] VITALS: Ht 162.6 cm; Wt 77.1 kg
--- NOTE | 2025-06-08 01:31 | NUR ---
UA CUP PROVIDED
--- NOTE | 2025-06-08 01:45 | EKG ---
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
[2025-06-08 01:47] LABS: IMMATURE GRANULOCYTE ABSOLUTE 0.04 K/uL (0-1); NUCLEATED RED BLOOD CELLS 0.0 % (0.0-0.19); PLATELET COUNT (AUTO) 377 K/uL (130-400); RED BLOOD CELL COUNT(AUTO) 4.33 MIL/uL (4.50-6.20); RED CELL DISTRIBUTION WIDTH 12.5 % (11.0-15.5); WHITE BLOOD COUNT (AUTO) 7.5 K/uL (4.8-10.8)
[2025-06-08 01:48] LABS: APPEARANCE,URINE CLEAR (CLEAR); GLUCOSE, URINE (UA) NEGATIVE (NEGATIVE); LEUKOCYTE ESTERASE ,URINE NEGATIVE Leu/uL (NEGATIVE); NITRATE,URINE NEGATIVE (NEGATIVE); OCCULT BLOOD,URINE SMALL (NEGATIVE)
[2025-06-08 01:55] LABS: ADD UA MICROSCOPIC YES; AMPHET/METH SCREEN,URINE NEGATIVE (NEGATIVE); BARBITURATE SCREEN, URINE NEGATIVE (NEGATIVE); CANNABINOID SCREEN,URINE NEGATIVE (NEGATIVE); COCAINE SCREEN,URINE NEGATIVE (NEGATIVE)
[2025-06-08 02:00] LABS: CREATININE 0.9 mg/dL (0.5-1.3); GLOMERULAR FILTR. RATE CALC 109.0 mL/min (>90); GLUCOSE,RANDOM 113.0 mg/dL (70-105); SODIUM SERUM 138.0 mmol/L (136-145); UREA NITROGEN, BLOOD 10.0 mg/dL (7-18)
[2025-06-08 02:05] LABS: ASPARTATE AMINOTRANSFERASE 17.0 U/L (10-37); TOTAL PROTEIN, SERUM 7.4 g/dL (6.0-8.3)
--- NOTE | 2025-06-08 02:20 | ERN ---
General Chief Complaint: Multiple Complaints Stated Complaint: PALPITATIONS, ABD PAIN, SOB Time Seen by MD: 01:43 Time Seen by Midlevel: 01:43 Source: patient History of Present Illness Initial Comments 44-year-old presenting to the ER for evaluation of palpitations that has been intermittent for the last week. Denies drug use. Denies any other symptoms. Allergies: Coded Allergies: No Known Drug Allergies (Unverified Allergy, Unknown, 01/30/20) Home Meds No Active Prescriptions or Reported Meds Past Medical History Past Medical History: No Pertinent History Past Surgical History: Other Surgical History Other: UMBILICAL HERNIA REPAIR 04/07/25 ROS Dictation CONSTITUTIONAL: Negative except for HPI HEAD/FACE: Negative except for HPI EENT: Negative except for HPI RESPIRATORY: Negative except for HPI GASTROINTESTINAL/ABDOMINAL: Negative except for HPI GENITOURINARY: Negative except for HPI MUSCULOSKELETAL: Negative except for HPI INTEGUMENTARY: Negative except for HPI NEUROLOGICAL/PSYCH: Negative except for HPI HEMATOLOGIC/LYMPHATIC: Negative except for HPI All Systems Negative, Except as noted above. 13 point review of systems assessed and all negative except for above. Physical Exam Physical Exam Dictation Vital Signs reviewed General Appearance: Alert, oriented x 3, no acute distress, well developed, nourished. Head and Face: non-traumatic. Eyes: PERRL, pink conjunctivas, eyelid no trauma, anterior chamber with arcus senilis. Ears: Pinnas intact and no signs of trauma or erythema ear canals clear and no discharge TM no erythema Nose: No discharge, no bleeding. Oropharynx: Mouth normal, tongue pink, pharynx clear,no erythema, tonsils no exudates, no abscesses noted, mucous membrane moist Neck: Supple, non-tender, no thyromegaly, no masses, no JVD, no bruits Breast:Deferred Chest:No tenderness, no crepitus, no paradoxical movement, no retractions Lungs:Clear, well-ventilated, symmetric, no rales, no wheezing, no rhonchi, no stridor, good breath sounds bilaterally Heart: Regular rate, regular rhythm, no murmur, no gallops Vascular: no peripheral edema, Abdomen: Soft, positive bowel sounds, nondistended, no guarding, nontender, no rebound, no masses no hepatomegaly, no splenomegaly, no Armstrong's sign, no hernias. Rectal: Deferred Genital: Deferred Neurological: Normal speech, motor function intact, sensory function intact Musculoskeletal: Neck nontender, full range of motion, back nontender, full range of motion, Extremities: nontender, full range of motion Skin: Color pink, dry, no turgor, no rash, no lacerations, no abrasions, no contusions. Lymphatic: Deferred Results Laboratory and Microbiology Lab and Micro Result Laboratory Tests Test 06/08/25 01:33 06/08/25 01:36 Urine Color COLORLESS (YELLOW) Urine Appearance CLEAR (CLEAR) Urine pH 6.0 (5.0-8.0) Urine Specific [place] 1.004 (1.001-1.031) Urine Protein NEGATIVE mg/dL (NEGATIVE) Urine Glucose (UA) NEGATIVE mg/dL (NEGATIVE) Urine Ketones NEGATIVE mg/dL (NEGATIVE) Urine Occult Blood SMALL (NEGATIVE) H Urine Nitrate NEGATIVE (NEGATIVE) Urine Bilirubin NEGATIVE mg/dL (NEGATIVE) Urine Urobilinogen 0.2 mg/dL (0.2-1.0) Urine Leukocyte Esterase NEGATIVE Genna/uL Urine RBC 0-1 /HPF (0-1) Urine WBC 0-1 /HPF (0-1) Urine Bacteria None /HPF (None Seen) Urine Opiates Screen NEGATIVE (NEGATIVE) Urine Barbiturates Screen NEGATIVE (NEGATIVE) Urine Phencyclidine Screen NEGATIVE (NEGATIVE) Urine Amphetamines Screen NEGATIVE (NEGATIVE) Urine Benzodiazepines Screen NEGATIVE (NEGATIVE) Urine Cocaine Screen NEGATIVE (NEGATIVE) Urine Marijuana (THC) Screen NEGATIVE (NEGATIVE) White Blood Count 7.5 K/uL (4.8-10.8) Red Blood Count 4.33 MIL/uL (4.50-6.20) L Hemoglobin 13.1 g/dL (14.0-18.0) L Hematocrit 36.7 % (42-54) L Mean Corpuscular Volume 84.8 fL (79-99) Mean Corpuscular Hemoglobin 30.3 pg (27.0-33.0) Mean Corpuscular Hemoglobin Concent 35.7 g/dL (32.0-36.0) Red Cell Distribution Width 12.5 % (11.0-15.5) Platelet Count 377 K/uL (130-400) Mean Platelet Volume 8.7 fL (7.5-10.5) Immature Granulocyte % (Auto) 0.5 % (0-1) Neutrophils (%) (Auto) 54.7 % (40.0-77.0) Lymphocytes (%) (Auto) 34.2 % (21.0-51.0) Monocytes (%) (Auto) 8.3 % (3.0-13.0) Eosinophils (%) (Auto) 2.0 % (0.0-8.0) Basophils (%) (Auto) 0.3 % (0.0-5.0) Neutrophils # (Auto) 4.1 K/uL (1.8-7.7) Lymphocytes # (Auto) 2.6 K/uL (1.0-4.8) Monocytes # (Auto) 0.6 K/uL (0.1-1.0) Eosinophils # (Auto) 0.15 K/uL (0.00-0.70) Basophils # (Auto) 0.02 K/uL (0.00-0.20) Absolute Immature Granulocyte (auto 0.04 K/uL (0-1) Nucleated Red Blood Cells 0.0 % (0.0-0.19) Sodium Level 138 mmol/L (136-145) Potassium Level 3.4 mmol/L (3.5-5.1) L Chloride Level 102 mmol/L (101-111) Carbon Dioxide Level 27 mmol/L (21-32) Blood Urea Nitrogen 10 mg/dL (7-18) Creatinine 0.9 mg/dL (0.5-1.3) Glomerular Filtration Rate Calc 109 mL/min (>90) Random Glucose 113 mg/dL (70-105) H Total Calcium 8.8 mg/dL (8.5-10.1) Magnesium Level 2.20 mg/dL (1.80-2.40) Total Bilirubin 1.0 mg/dL (0.2-1.0) Aspartate Amino Transf (AST/SGOT) 17 U/L (10-37) Alanine Aminotransferase (ALT/SGPT) 45 U/L (12-78) Alkaline Phosphatase 67 U/L (50-136) Troponin I High Sensitivity 4 ng/L (4-75) Total Protein 7.4 g/dL (6.0-8.3) Albumin 4.2 g/dL (3.5-5.0) Labs Reviewed?: Yes MDM MDM: 44-year-old male presenting with the palpitations. Cardiac workup initiated. EKGs normal. Troponin negative. Labs are stable. Patient will following up with Cardiology outpatient. Patient does not want to stay in the hospital. We will discharged home with strict return precautions Differential diagnosis: There are no social concerns with this patient. Prescription drug management Prescriptions will include: None Medical management and examination interpretation discussions were had by me with other qualified healthcare professionals as indicated for the patient's care. ED Course Orders Procedure Category Date Status Time Drug Screen Urine LAB 06/08/25 Complete 01:33 Urinalysis Profile LAB 06/08/25 Complete 01:33 Cbc With Differential LAB 06/08/25 Complete 01:33 Comprehensive LAB 06/08/25 Complete Metabolic Panel 01:33 Magnesium LAB 06/08/25 Complete 01:33 Troponin I High LAB 06/08/25 Complete Sensitivity 01:33 12 Lead Ekg Tracing- EKG 06/08/25 Complete Technical 01:37 0.9%Nacl 1000ml (Ns PHA 06/08/25 In Process 1000ml) 02:30 Current Medications Medications (Trade) Dose Ordered Sig/Danielle Route PRN Reason Start Time Stop Time Status Last Admin Dose Admin Sodium Chloride 1,000 ml @ 0 mls/hr ONCE ONCE IV 06/08/25 02:30 06/08/25 02:31 Vital Signs Date Time Temp Pulse Resp B/P (MAP) Pulse Ox O2 Delivery O2 Flow Rate FiO2 06/08/25 01:53 97.9 115 20 128/79 98 Room Air* 0 21 06/08/25 01:27 97.9 111 20 127/76 99 Room Air DX & DISP Disposition: Discharge Departure Impression: Primary Impression: Palpitations Condition: Stable Scripts No Active Prescriptions or Reported Meds Referrals: SELF,REFERRAL (PCP) MELODY DAMICO MD,SEEMA LA,ZOE Reyes MD Time of Disposition: 02:20 I have reviewed the case, and I agree with, Diagnosis and Plan I performed the substantive portion of the visit. I have reviewed and personally made and approve the management plan that is documented in the note by myself or the DENNISE. I acknowledge for responsibility for the patient's management plan. TANIA HUDDLESTON Jun 08, 2025 02:20
[2025-06-08 02:23] VITALS: BP 124/75; PULSE 119; RESP 19; TEMP 97.6; O2SAT 97
[2025-06-08] MEDS ORDERED: 0.9%NACL 1000ML 1,000 ML IV ONE (02:30)
== END 2025-06-08 02:28 | disposition home or self-care (01) ==
LOC: EDH 01:26
DX: R00.2 Palpitations (principal)
CPT/HCPCS: 36415; 80053; 80305; 81001; 83735; 84484; 85025; 93005; 99284

== ENCOUNTER 2025-06-08 12:00 | Emergency (ER) | payer SELFPAY ==
[~2025-06-08] VITALS: Ht 162.6 cm; Wt 77.1 kg
--- NOTE | 2025-06-08 12:32 | ERN ---
General Chief Complaint: Palpitations Stated Complaint: PALPITATIONS X 2 WEEKS Time Seen by MD: 12:03 Source: patient History of Present Illness Initial Comments Patient is a 44-year-old male coming in complaining of racing heart. Per patient he states that he has been seen before another ER for same reason. He also states that his racing heart fluctuates is not present all the time. Allergies: Coded Allergies: No Known Drug Allergies (Unverified Allergy, Unknown, 01/30/20) Home Meds No Active Prescriptions or Reported Meds Past Medical History Past Medical History: No Pertinent History Past Surgical History: Other Surgical History Other: UMBILICAL HERNIA REPAIR 04/07/25 ROS Dictation CONSTITUTIONAL: No chills, no fever, no weakness, no diaphoresis, no malaise. HEAD/FACE: No signs of trauma. EENT: No eye pain, no blurred vision, no tearing, no double vision, no ear pain, no ear discharge, no nose pain, no nasal congestion, no throat pain, no throat swelling, no mouth pain. RESPIRATORY: No cough, no orthopnea, no SOB, no stridor, no wheezing. CARDIOVASCULAR: No chest pain, no edema, no palpitations, no syncope. GASTROINTESTINAL/ABDOMINAL: No abdominal pain, no constipation, no diarrhea, no nausea, no vomiting. GENITOURINARY: No abnormal discharge, no dysuria, no frequent urination, no hematuria. No complaints of pain in the genitals. MUSCULOSKELETAL: No back pain, no gout, no joint pain, no joint swelling, no muscle pain, no muscle stiffness, no neck pain. INTEGUMENTARY: No change in color, no change in hair/nails, no dryness, no lesion, no lumps, no rash. NEUROLOGICAL/PSYCH: No anxiety, not depressed, no emotional problem, no headache, no numbness, no pre-existing deficit, no history of seizures, no trem ors, no weakness. HEMATOLOGIC/LYMPHATIC: Not anemic, no history of blood clots, no apparent bleeding, no bruising, glands not swollen. All Systems Negative, Except as Noted. Physical Exam Physical Exam Dictation VITAL SIGNS: Reviewed. GENERAL APPEARANCE: Alert, oriented x3, no acute distress, obese. HEAD AND FACE: Non-traumatic. EYES: PERRL, pink conjunctivas, eyelid no trauma, anterior chamber clear. EARS: Pinnas intact and no signs of trauma or erythema. Ear canals clear and no discharge. TMs no erythema. NOSE: No discharge, no bleeding. OROPHARYNX: Mouth normal, teeth no caries, tongue pink. Pharynx clear, no erythema. Tonsils no exudates, no abscesses noted. Mucous membrane moist. NECK: Supple, non-tender, no thyromegaly, no masses, no JVD, no bruits. BREAST: Deferred. CHEST: No tenderness, no crepitus, no paradoxical movement, no retractions. LUNGS: Clear, well-ventilated, symmetric, no rales, no wheezing, no rhonchi, no stridor, good breath sounds bilaterally. HEART: Regular rate, regular rhythm, no murmur, no gallops. VASCULAR: No peripheral edema. ABDOMEN: Soft, positive bowel sounds, nondistended, no guarding, nontender, no rebound, no masses no hepatomegaly, no splenomegaly, no Armstrong's sign, no hernias. RECTAL: Deferred. GENITAL: Deferred. NEUROLOGICAL: Normal speech, gross motor function intact, gross sensory f unction intact. MUSCULOSKELETAL: Neck nontender, full range of motion, back nontender, full range of motion. EXTREMITIES: Nontender, full range of motion. SKIN: Color pink, dry, no turgor, no rash, no lacerations, no abrasions, no contusions. LYMPHATICS: Deferred. Results Laboratory and Microbiology Lab and Micro Result Laboratory Tests Test 06/08/25 12:27 06/08/25 12:36 Urine Color YELLOW (YELLOW) Urine Appearance CLEAR (CLEAR) Urine pH 7.5 (5.0-8.0) Urine Specific [place] 1.022 (1.001-1.031) Urine Protein NEGATIVE mg/dL (NEGATIVE) Urine Glucose (UA) NEGATIVE mg/dL (NEGATIVE) Urine Ketones 10 mg/dL (NEGATIVE) H Urine Occult Blood MODERATE (NEGATIVE) H Urine Nitrate NEGATIVE (NEGATIVE) Urine Bilirubin NEGATIVE mg/dL (NEGATIVE) Urine Urobilinogen 2.0 mg/dL (0.2-1.0) H Urine Leukocyte Esterase NEGATIVE Genna/uL Urine RBC 26-50 /HPF (0-1) H Urine WBC 0-1 /HPF (0-1) Urine Bacteria None /HPF (None Seen) Urine Yeast RARE /HPF (None Seen) Urine Opiates Screen NEGATIVE (NEGATIVE) Urine Barbiturates Screen NEGATIVE (NEGATIVE) Urine Phencyclidine Screen NEGATIVE (NEGATIVE) Urine Amphetamines Screen NEGATIVE (NEGATIVE) Urine Benzodiazepines Screen POSITIVE (NEGATIVE) H Urine Cocaine Screen NEGATIVE (NEGATIVE) Urine Marijuana (THC) Screen POSITIVE (NEGATIVE) H White Blood Count 8.6 K/uL (4.8-10.8) Red Blood Count 4.47 MIL/uL (4.50-6.20) L Hemoglobin 13.5 g/dL (14.0-18.0) L Hematocrit 37.7 % (42-54) L Mean Corpuscular Volume 84.3 fL (79-99) Mean Corpuscular Hemoglobin 30.2 pg (27.0-33.0) Mean Corpuscular Hemoglobin Concent 35.8 g/dL (32.0-36.0) Red Cell Distribution Width 12.5 % (11.0-15.5) Platelet Count 388 K/uL (130-400) Mean Platelet Volume 8.7 fL (7.5-10.5) Immature Granulocyte % (Auto) 0.6 % (0-1) Neutrophils (%) (Auto) 66.6 % (40.0-77.0) Lymphocytes (%) (Auto) 21.9 % (21.0-51.0) Monocytes (%) (Auto) 9.2 % (3.0-13.0) Eosinophils (%) (Auto) 1.3 % (0.0-8.0) Basophils (%) (Auto) 0.4 % (0.0-5.0) Neutrophils # (Auto) 5.7 K/uL (1.8-7.7) Lymphocytes # (Auto) 1.9 K/uL (1.0-4.8) Monocytes # (Auto) 0.8 K/uL (0.1-1.0) Eosinophils # (Auto) 0.11 K/uL (0.00-0.70) Basophils # (Auto) 0.03 K/uL (0.00-0.20) Absolute Immature Granulocyte (auto 0.05 K/uL (0-1) Nucleated Red Blood Cells 0.0 % (0.0-0.19) Sodium Level 136 mmol/L (136-145) Potassium Level 3.4 mmol/L (3.5-5.1) L Chloride Level 100 mmol/L (101-111) L Carbon Dioxide Level 29 mmol/L (21-32) Blood Urea Nitrogen 12 mg/dL (7-18) Creatinine 0.9 mg/dL (0.5-1.3) Glomerular Filtration Rate Calc 109 mL/min (>90) Random Glucose 122 mg/dL (70-105) H Total Calcium 9.0 mg/dL (8.5-10.1) Total Creatine Kinase 159 U/L (21-232) Troponin I High Sensitivity 4 ng/L (4-75) Labs Reviewed?: Yes EKG/XRAY/US/CT/MRI EKG Comment 06/08/2025 time 12:03 p.m. Ventricular rate 102 Sinus tachycardia [place] [address] wave elevation or depression X-RAY Comment xray-nad MDM MDM: Differential diagnosis: Chest pain, palpitations, polysubstance abuse has been Rationale: Tests considered and ordered secondary to shared decision making include: Previous outside records reviewed: Old ER visits. Risk of complication and/or morbidity or mortality of patient management: None Medications-Per medication reconciliation Need for hospitalization: Patient does not meet criteria for hospitalization. Need for emergency major/minor surgery: No Patient is a 44-year-old male coming in complaining of palpitations laboratory with a positive up since. I did advised patient to stay away from drugs such as cannabis as this will increase his anxiety and increase his palpitations. Patient will be discharged in stable condition with a diagnosis polysubstance abuse and anxiety. ED Course Orders Procedure Category Date Status Time Cbc With Differential LAB 06/08/25 Complete 12:10 Chest 1vw RAD 06/08/25 Taken 12:10 12 Lead Ekg Tracing- EKG 06/08/25 Logged Technical 12:10 0.9%Nacl 1000ml (Ns PHA 06/08/25 Complete 1000ml) 12:30 Creatine Kinase, Total LAB 06/08/25 Complete 12:10 Troponin I High LAB 06/08/25 Complete Sensitivity 12:10 Urinalysis Profile LAB 06/08/25 Complete 12:10 Basic Metabolic Panel LAB 06/08/25 Complete 12:10 Drug Screen Urine LAB 06/08/25 Complete 12:10 Potassium Bicarb/Cit PHA 06/08/25 In Process Ac 25meq (K-Lyte Ta 13:30 Current Medications Medications (Trade) Dose Ordered Sig/Danielle Route PRN Reason Start Time Stop Time Status Last Admin Dose Admin Potassium Bicarbonate (K-Lyte Tablet Eff 25 Meq Tablet.eff) 25 meq ONCE ONCE PO 06/08/25 13:30 06/08/25 13:31 Sodium Chloride 1,000 ml @ 0 mls/hr ONCE ONCE IV 06/08/25 12:30 06/08/25 12:31 DC 06/08/25 12:57 Vital Signs Date Time Temp Pulse Resp B/P (MAP) Pulse Ox O2 Delivery O2 Flow Rate FiO2 06/08/25 12:41 95 16 116/76 96 Room Air* 0 21 06/08/25 12:03 98.8 101 18 113/82 98 Room Air 0 DX & DISP Disposition: Discharge Departure Impression: Primary Impression: Polysubstance abuse Condition: Stable Scripts No Active Prescriptions or Reported Meds Additional Instructions: You have been reviewed in the emergency department at [facility] after presenting with chest pain. After considering your history, your risk factors, your EKG and your blood test troponins, have been found to be at very low risk less than (1 in 100) of having a major adverse cardiac event (like heart attack) in the near future. In the " low risk" group, the risks of doing further tests and treatment as the inpatient outweighs the benefits. In many patients in the low risk group for the test of any sort or unnecessary, however he should discuss this further with his general practitioner who will understand the medical and personal backgrounds better. Because we have never declared you" no risk" we would suggest. 1 returning for medical review if you have further episodes of chest pain/arm pain or other concerning symptoms like dizziness, collapse, palpitations or shortness of breath. 2. Following up with your local doctor who will consider the need for further testing and will also ensure that any modifiable risk factors you may have for heart disease are optimally managed. Patient will be discharged in stable condition at the moment discharge patient states , no chest pain Referrals: SELF,REFERRAL (PCP) TANIA MONTES MD Time of Disposition: 13:12 TIA ATKINS MD Jun 08, 2025 12:32
[2025-06-08 12:43] LABS: APPEARANCE,URINE CLEAR (CLEAR); GLUCOSE, URINE (UA) NEGATIVE (NEGATIVE); LEUKOCYTE ESTERASE ,URINE NEGATIVE Leu/uL (NEGATIVE); NITRATE,URINE NEGATIVE (NEGATIVE); OCCULT BLOOD,URINE MODERATE (NEGATIVE)
[2025-06-08 12:45] LABS: IMMATURE GRANULOCYTE ABSOLUTE 0.05 K/uL (0-1); NUCLEATED RED BLOOD CELLS 0.0 % (0.0-0.19); PLATELET COUNT (AUTO) 388 K/uL (130-400); RED BLOOD CELL COUNT(AUTO) 4.47 MIL/uL (4.50-6.20); RED CELL DISTRIBUTION WIDTH 12.5 % (11.0-15.5); WHITE BLOOD COUNT (AUTO) 8.6 K/uL (4.8-10.8)
[2025-06-08 12:47] LABS: AMPHET/METH SCREEN,URINE NEGATIVE (NEGATIVE); BARBITURATE SCREEN, URINE NEGATIVE (NEGATIVE); CANNABINOID SCREEN,URINE POSITIVE (NEGATIVE); COCAINE SCREEN,URINE NEGATIVE (NEGATIVE)
[2025-06-08 12:50] LABS: ADD UA MICROSCOPIC YES
[2025-06-08 12:51] LABS: YEAST,URINE BUDDING RARE /HPF (None Seen)
[2025-06-08 12:53] LABS: CREATININE 0.9 mg/dL (0.5-1.3); GLOMERULAR FILTR. RATE CALC 109.0 mL/min (>90); GLUCOSE,RANDOM 122.0 mg/dL (70-105); SODIUM SERUM 136.0 mmol/L (136-145); UREA NITROGEN, BLOOD 12.0 mg/dL (7-18)
[2025-06-08] MEDS: 0.9%NACL 1000ML 1,000 ML IV ONE (12:57)
[2025-06-08 12:58] LABS: CREATINE KINASE, TOTAL 159.0 U/L (21-232)
--- NOTE | 2025-06-08 13:33 | HMCIMG ---
Examination: Chest, 1 view Clinical history: Palpitations Comparison: Radiograph dated April 07, 2025 Findings: Limited. Lungs are clear. No pleural effusion or pneumothorax. Heart size and pulmonary vessels are within normal limits. Impression: No acute cardiopulmonary process. /[place]
[2025-06-08 13:50] VITALS: BP 122/78; PULSE 85; RESP 16; TEMP 98.8; O2SAT 98
--- NOTE | 2025-06-08 13:50 | EKG ---
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
== END 2025-06-08 13:56 | disposition home or self-care (01) ==
LOC: EDH 12:00 → EEVIPCON 12:00 → EDH 13:56
DX: F19.10 Other psychoactive substance abuse, uncomplicated (principal)
CPT/HCPCS: 99285; 96360; 71045; 82550; 84484; 80048; 80305; 85025; 81001; 36415; 93005; J7030

== ENCOUNTER 2025-06-22 23:35 | Emergency (ER) | payer SELFPAY ==
[~2025-06-22] VITALS: Ht 162.6 cm; Wt 77.1 kg
--- NOTE | 2025-06-22 23:46 | ERN ---
General Chief Complaint: Palpitations Stated Complaint: PALPITATIONS Time Seen by MD: 23:39 Source: patient History of Present Illness Initial Comments Patient is a 44-year-old male coming in complaining of chest pressure and palpitations. He states that he has had many episodes like this he was treated for anxiety he was also given metoprolol for his tachycardia but states he stopped taking it because his blood pressure was dropping. He still pending a cardiology visit. He states that earlier today while sitting down watching TV started feeling the sensation again and decided to come in for further evaluation. Allergies: Coded Allergies: No Known Drug Allergies (Unverified Allergy, Unknown, 01/30/20) Home Meds No Active Prescriptions or Reported Meds Past Medical History Past Medical History: No Pertinent History Past Surgical History: Other Surgical History Other: UMBILICAL HERNIA REPAIR 04/07/25 ROS Dictation CONSTITUTIONAL: No chills, no fever, no weakness, no diaphoresis, no malaise. HEAD/FACE: No signs of trauma. EENT: No eye pain, no blurred vision, no tearing, no double vision, no ear pain, no ear discharge, no nose pain, no nasal congestion, no throat pain, no throat swelling, no mouth pain. RESPIRATORY: No cough, no orthopnea, no SOB, no stridor, no wheezing. CARDIOVASCULAR: No chest pain, no edema, palpitations, no syncope. GASTROINTESTINAL/ABDOMINAL: No abdominal pain, no constipation, no diarrhea, no nausea, no vomiting. GENITOURINARY: No abnormal discharge, no dysuria, no frequent urination, no hematuria. No complaints of pain in the genitals. MUSCULOSKELETAL: No back pain, no gout, no joint pain, no joint swelling, no muscle pain, no muscle stiffness, no neck pain. INTEGUMENTARY: No change in color, no change in hair/nails, no dryness, no lesion, no lumps, no rash. NEUROLOGICAL/PSYCH: No anxiety, not depressed, no emotional problem, no headache, no numbness, no pre-existing deficit, no history of seizures, no tremors, no weakness. HEMATOLOGIC/LYMPHATIC: Not anemic, no history of blood clots, no apparent bleeding, no bruising, glands not swollen. All Systems Negative, Except as Noted. Physical Exam Physical Exam Dictation VITAL SIGNS: Reviewed. GENERAL APPEARANCE: Alert, oriented x3, no acute distress, obese. HEAD AND FACE: Non-traumatic. EYES: PERRL, pink conjunctivas, eyelid no trauma, anterior chamber clear. EARS: Pinnas intact and no signs of trauma or erythema. Ear canals clear and no discharge. TMs no erythema. NOSE: No discharge, no bleeding. OROPHARYNX: Mouth normal, teeth no caries, tongue pink. Pharynx clear, no erythema. Tonsils no exudates, no abscesses noted. Mucous membrane moist. NECK: Supple, non-tender, no thyromegaly, no masses, no JVD, no bruits. BREAST: Deferred. CHEST: No tenderness, no crepitus, no paradoxical movement, no retractions. LUNGS: Clear, well-ventilated, symmetric, no rales, no wheezing, no rhonchi, no stridor, good breath sounds bilaterally. HEART: Regular rate, regular rhythm, no murmur, no gallops. VASCULAR: No peripheral edema. ABDOMEN: Soft, positive bowel sounds, nondistended, no guarding, nontender, no rebound, no masses no hepatomegaly, no splenomegaly, no Armstrong's sign, no hernias. RECTAL: Deferred. GENITAL: Deferred. NEUROLOGICAL: Normal speech, gross motor function intact, gross sensory function intact. MUSCULOSKELETAL: Neck nontender, full range of motion, back nontender, full range of motion. EXTREMITIES: Nontender, full range of motion. SKIN: Color pink, dry, no turgor, no rash, no lacerations, no abrasions, no contusions. LYMPHATICS: Deferred. Results Laboratory and Microbiology Lab and Micro Result Laboratory Tests Test 06/22/25 23:42 06/22/25 23:48 Urine Color COLORLESS (YELLOW) Urine Appearance CLEAR (CLEAR) Urine pH 6.5 (5.0-8.0) Urine Specific [place] 1.002 (1.001-1.031) Urine Protein NEGATIVE mg/dL (NEGATIVE) Urine Glucose (UA) NEGATIVE mg/dL (NEGATIVE) Urine Ketones NEGATIVE mg/dL (NEGATIVE) Urine Occult Blood SMALL (NEGATIVE) H Urine Nitrate NEGATIVE (NEGATIVE) Urine Bilirubin NEGATIVE mg/dL (NEGATIVE) Urine Urobilinogen 0.2 mg/dL (0.2-1.0) Urine Leukocyte Esterase NEGATIVE Genna/uL Urine RBC 2-5 /HPF (0-1) H Urine WBC None /HPF (0-1) Urine Bacteria None /HPF (None Seen) Urine Opiates Screen NEGATIVE (NEGATIVE) Urine Barbiturates Screen NEGATIVE (NEGATIVE) Urine Phencyclidine Screen NEGATIVE (NEGATIVE) Urine Amphetamines Screen NEGATIVE (NEGATIVE) Urine Benzodiazepines Screen NEGATIVE (NEGATIVE) Urine Cocaine Screen NEGATIVE (NEGATIVE) Urine Marijuana (THC) Screen NEGATIVE (NEGATIVE) White Blood Count 7.8 K/uL (4.8-10.8) Red Blood Count 4.49 MIL/uL (4.50-6.20) L Hemoglobin 13.5 g/dL (14.0-18.0) L Hematocrit 39.5 % (42-54) L Mean Corpuscular Volume 88.0 fL (79-99) Mean Corpuscular Hemoglobin 30.1 pg (27.0-33.0) Mean Corpuscular Hemoglobin Concent 34.2 g/dL (32.0-36.0) Red Cell Distribution Width 12.6 % (11.0-15.5) Platelet Count 425 K/uL (130-400) H Mean Platelet Volume 8.7 fL (7.5-10.5) Immature Granulocyte % (Auto) 0.8 % (0-1) Neutrophils (%) (Auto) 61.3 % (40.0-77.0) Lymphocytes (%) (Auto) 26.7 % (21.0-51.0) Monocytes (%) (Auto) 8.3 % (3.0-13.0) Eosinophils (%) (Auto) 2.4 % (0.0-8.0) Basophils (%) (Auto) 0.5 % (0.0-5.0) Neutrophils # (Auto) 4.8 K/uL (1.8-7.7) Lymphocytes # (Auto) 2.1 K/uL (1.0-4.8) Monocytes # (Auto) 0.7 K/uL (0.1-1.0) Eosinophils # (Auto) 0.19 K/uL (0.00-0.70) Basophils # (Auto) 0.04 K/uL (0.00-0.20) Absolute Immature Granulocyte (auto 0.06 K/uL (0-1) Nucleated Red Blood Cells 0.0 % (0.0-0.19) Sodium Level 141 mmol/L (136-145) Potassium Level 3.5 mmol/L (3.5-5.1) Chloride Level 103 mmol/L (101-111) Carbon Dioxide Level 28 mmol/L (21-32) Blood Urea Nitrogen 15 mg/dL (7-18) Creatinine 0.8 mg/dL (0.5-1.3) Glomerular Filtration Rate Calc 113 mL/min (>90) Random Glucose 112 mg/dL (70-105) H Total Calcium 8.7 mg/dL (8.5-10.1) Troponin I High Sensitivity < 4 ng/L (4-75) L Labs Reviewed?: Yes EKG/XRAY/US/CT/MRI EKG Comment 06/22/2025 time 11:34 p.m. Ventricular rate [address] wave elevation or depression CT 129 MDM MDM: Differential diagnosis: Anxiety, drug abuse, tachycardia, arrhythmias, Rationale: Tests considered and ordered secondary to shared decision making include: Previous outside records reviewed: Old ER visits. Risk of complication and/or morbidity or mortality of patient management: None Medications-Per medication reconciliation Need for hospitalization: Patient does not meet criteria for hospitalization. Need for emergency major/minor surgery: No Patient is a 44-year-old male coming in complaining of tachycardia. Per patient he has been having this racing heart sensation for many months. Patient has been evaluated at ER several times he was prescribed metoprolol but he states he has a stop it due to low blood pressure. He is pending a cardiology consult today's evaluation with a cardiac workup did not disclose acute findings. I did advised him appropriate follow up with PCP for long-term management. ED Course Orders Procedure Category Date Status Time Cbc With Differential LAB 06/22/25 Complete 23:38 Basic Metabolic Panel LAB 06/22/25 Complete 23:38 Troponin I High LAB 06/22/25 Complete Sensitivity 23:38 Urinalysis Profile LAB 06/22/25 Complete 23:38 Drug Screen Urine LAB 06/22/25 Complete 23:38 12 Lead Ekg Tracing- EKG 06/22/25 Logged Technical 23:39 Chest 1vw RAD 06/22/25 Taken 23:41 Pantoprazole 40mg Inj PHA 06/23/25 Complete (Protonix 40mg Inj 00:00 Lidocaine Hcl 2% PHA 06/23/25 In Process Viscous (Lidocaine Hcl 01:30 Mag/Alum/Simeth 30ml PHA 06/23/25 In Process (Maalox Plus 30ml) 01:30 Current Medications Medications (Trade) Dose Ordered Sig/Danielle Route PRN Reason Start Time Stop Time Status Last Admin Dose Admin Al Hydroxide/Mg Hydroxide (MAALox PLUS 30ML) 30 ml ONCE ONCE PO 06/23/25 01:30 06/23/25 01:31 Lidocaine HCl (Lidocaine HCl 2% Viscous) 10 ml ONCE ONCE PO 06/23/25 01:30 06/23/25 01:31 Pantoprazole Sodium (PROTonix 40MG INJ) 40 mg ONCE ONCE IVP 06/23/25 00:00 06/23/25 00:03 DC 06/23/25 00:43 Vital Signs Date Time Temp Pulse Resp B/P (MAP) Pulse Ox O2 Delivery O2 Flow Rate FiO2 06/22/25 23:42 98.4 113 18 132/80 98 Room Air* 0 21 06/22/25 23:42 98.4 113 18 132/82 99 Room Air DX & DISP Disposition: Discharge Departure Impression: Primary Impression: Anxiety Additional Impression: Sinus tachycardia Condition: Stable Scripts No Active Prescriptions or Reported Meds Additional Instructions: You have been reviewed in the emergency department at [facility] after presenting with chest pain. After considering your history, your risk factors, your EKG and your blood test troponins, have been found to be at very low risk less than (1 in 100) of having a major adverse cardiac event (like heart attack) in the near future. In the " low risk" group, the risks of doing further tests and treatment as the inpatient outweighs the benefits. In many patients in the low risk group for the test of any sort or unnecessary, however he should discuss this further with his general practitioner who will understand the medical and personal backgrounds better. Because we have never declared you" no risk" we would suggest. 1 returning for medical review if you have further episodes of chest pain/arm pain or other concerning symptoms like dizziness, collapse, palpitations or shortness of breath. 2. Following up with your local doctor who will consider the need for further testing and will also ensure that any modifiable risk factors you may have for heart disease are optimally managed. Patient will be discharged in stable condition at the moment discharge patient states , no chest pain Referrals: SELF,REFERRAL (PCP) TANIA MONTES MD Time of Disposition: :23 TIA ATKINS MD Jun 22, 2025 23:46
[2025-06-22 23:55] LABS: IMMATURE GRANULOCYTE ABSOLUTE 0.06 K/uL (0-1); NUCLEATED RED BLOOD CELLS 0.0 % (0.0-0.19); PLATELET COUNT (AUTO) 425 K/uL (130-400); RED BLOOD CELL COUNT(AUTO) 4.49 MIL/uL (4.50-6.20); RED CELL DISTRIBUTION WIDTH 12.6 % (11.0-15.5); WHITE BLOOD COUNT (AUTO) 7.8 K/uL (4.8-10.8)
[2025-06-22 23:57] LABS: APPEARANCE,URINE CLEAR (CLEAR); GLUCOSE, URINE (UA) NEGATIVE (NEGATIVE); LEUKOCYTE ESTERASE ,URINE NEGATIVE Leu/uL (NEGATIVE); NITRATE,URINE NEGATIVE (NEGATIVE); OCCULT BLOOD,URINE SMALL (NEGATIVE)
[2025-06-23 00:01] LABS: ADD UA MICROSCOPIC YES
[2025-06-23 00:02] LABS: CREATININE 0.8 mg/dL (0.5-1.3); GLOMERULAR FILTR. RATE CALC 113.0 mL/min (>90); GLUCOSE,RANDOM 112.0 mg/dL (70-105); SODIUM SERUM 141.0 mmol/L (136-145); UREA NITROGEN, BLOOD 15.0 mg/dL (7-18)
[2025-06-23 00:17] LABS: AMPHET/METH SCREEN,URINE NEGATIVE (NEGATIVE); BARBITURATE SCREEN, URINE NEGATIVE (NEGATIVE); CANNABINOID SCREEN,URINE NEGATIVE (NEGATIVE); COCAINE SCREEN,URINE NEGATIVE (NEGATIVE)
[2025-06-23] MEDS: MAG/ALUM/SIMETH 30 ML UDCUP PO ONE (01:42)
[2025-06-23] MEDS: LIDOCAINE HCL 2% VISCOUS 15 ML UDCUP PO ONE (01:42)
--- NOTE | 2025-06-23 01:56 | HMCIMG ---
EXAM: CR Chest, 1 view CLINICAL HISTORY: Palpitations. COMPARISON: Chest radiograph dated 06/08/2025. FINDINGS: The lungs show no infiltrates or other acute findings. No pleural effusion or pneumothorax. The cardiomediastinal silhouette is within normal limits. No acute osseous abnormality. IMPRESSION: No acute cardiopulmonary process is evident. Compared to the prior study, there is no significant interval change. /Twin Brooks
[2025-06-23 02:02] VITALS: BP 128/84; PULSE 92; RESP 16; TEMP 98.4; O2SAT 99
--- NOTE | 2025-06-23 07:19 | EKG ---
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
== END 2025-06-23 02:03 | disposition home or self-care (01) ==
LOC: EDH 23:35
DX: F41.9 Anxiety disorder, unspecified (principal); R00.0 Tachycardia, unspecified
CPT/HCPCS: 99285; 71045; 84484; 80048; 80305; 85025; 81001; 36415; 93005; 96374; J2470

== ENCOUNTER 2025-08-25 22:34 | Emergency (ER) | payer SELFPAY ==
[~2025-08-25] VITALS: Ht 162.6 cm; Wt 79.4 kg
[2025-08-25 23:11] LABS: IMMATURE GRANULOCYTE ABSOLUTE 0.07 K/uL (0-1); NUCLEATED RED BLOOD CELLS 0.0 % (0.0-0.19); PLATELET COUNT (AUTO) 415 K/uL (130-400); RED BLOOD CELL COUNT(AUTO) 4.94 MIL/uL (4.50-6.20); RED CELL DISTRIBUTION WIDTH 12.6 % (11.0-15.5); WHITE BLOOD COUNT (AUTO) 11.9 K/uL (4.8-10.8)
[2025-08-25 23:17] LABS: CREATININE 1.0 mg/dL (0.5-1.3); GLOMERULAR FILTR. RATE CALC 96.0 mL/min (>90); GLUCOSE,RANDOM 101.0 mg/dL (70-105); SODIUM SERUM 139.0 mmol/L (136-145); UREA NITROGEN, BLOOD 15.0 mg/dL (7-18)
[2025-08-25 23:22] LABS: CREATINE KINASE, TOTAL 162.0 U/L (21-232)
[2025-08-25] MEDS: 0.9%NACL 1000ML 1,000 ML IV ONE (23:28)
--- NOTE | 2025-08-26 00:02 | HMCIMG ---
EXAM: CR Chest, 1 View. CLINICAL HISTORY: Sob. COMPARISON: June 23, 2025, chest radiograph. FINDINGS: The rotation present LUNGS: The lungs show no infiltrate or other acute finding. However, the right hilum appears bulky and needs further assessment with a contrast-enhanced CT chest, if required clinically. PLEURAL SPACES: No pleural effusion or pneumothorax. MEDIASTINUM: The cardiomediastinal silhouette is within normal limits. BONES: No aggressive appearing osseous lesion is seen. IMPRESSION: The right hilum appears bulky and needs further assessment with a contrast-enhanced CT chest, if required clinically. /Eleanor
--- NOTE | 2025-08-26 00:38 | EKG ---
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
[2025-08-26 00:58] LABS: AMPHET/METH SCREEN,URINE NEGATIVE (NEGATIVE); BARBITURATE SCREEN, URINE NEGATIVE (NEGATIVE); CANNABINOID SCREEN,URINE NEGATIVE (NEGATIVE); COCAINE SCREEN,URINE NEGATIVE (NEGATIVE)
--- NOTE | 2025-08-26 01:07 | ERN ---
ED Note History of Present Illness Stated Complaint: C/O "HEART RACING" AFTER USING COCAINE Chief Complaint: Drug Abuse Time Seen by MD: 22:43 Time Seen by Midlevel: 22:43 Dictation: The patient is a 44-year-old male with a history of tachycardia on metoprolol, inguinal hernia repair who presents to the emergency department with complaints of palpitations onset today around noon. Patient reports that he did cocaine last night and is now concerned for his tachycardia because of his previous history. Patient reports chest pressure to the left side since 7:00 p.m.. Allergies: Coded Allergies: No Known Drug Allergies (Unverified Allergy, Unknown, 01/30/20) Home Meds No Active Prescriptions or Reported Meds Past Medical History Past Medical History: Anxiety Additional Past Medical Hx: HX OF SINUS TACHY Surgical History: Other Surgical History Other: HERNIA REPAIR RN Note Reviewed/Agreed w/PFSH: Yes Review of System Dictation Constitutional: Negative for fever,chills, and weight loss Eyes: Negative for injury, pain,redness, and discharge ENT: Negative for injury,pain or swelling Cardiovascular: Negative for edema positive for palpitations, chest pain Respiratory: Negative for shortness of breath, cough, and wheezing, Abdomen/GI: Negative for abdominal pain, nausea, vomiting, diarrhea, and constipation Back: Negative for injury and pain : Negative for injury, bleeding and discharge MS/Extremity: Negative for injury and deformity Skin: Negative for rash, and discoloration Neuro: Negative for headache, weakness, numbness, tingling, and seizure Psych: Negative for suicide ideation, homicidal ideation, and hallucinations Initial Vital Sign VS Vital Signs Date Time Temp Pulse Resp B/P (MAP) Pulse Ox O2 Delivery O2 Flow Rate FiO2 08/25/25 22:37 97.5 91 20 137/74 98 Room Air Physical Exam Dictation Vital Signs reviewed General Appearance: Alert, oriented x 3, no acute distress, well developed, nourished. Head and Face: non-traumatic. Eyes: PERRL, pink conjunctivas, eyelid no trauma, anterior chamber with arcus senilis. Ears: Pinnas intact and no signs of trauma or erythema ear canals clear and no discharge TM no erythema Nose: No discharge, no bleeding. Oropharynx: Mouth normal, tongue pink. pharynx clear,no erythema, tonsils no exudates, no abscesses noted, mucous membrane moist Neck: Supple, non-tender, no thyromegaly, no masses, no JVD, no bruits Breast:Deferred Chest:+ tenderness, no crepitus, no paradoxical movement, no retractions Lungs:Clear, well-ventilated, symmetric, no rales, no wheezing, no rhonchi, no stridor, good breath sounds bilaterally Heart: Regular rate, regular rhythm, no murmur, no gallops Vascular: no peripheral edema, Abdomen: Soft, positive bowel sounds, nondistended, no guarding, nontender, no rebound, no masses no hepatomegaly, no splenomegaly, no Armstrong's sign, no hernias. Rectal: Deferred Genital: Deferred Neurological: Normal speech, motor function intact, sensory function intact Musculoskeletal: Neck nontender, full range of motion, back nontender, full range of motion, Extremities: nontender, full range of motion Skin: Color pink, dry, no turgor, no rash, no lacerations, no abrasions, no contusions. Lymphatic: Deferred Results (Laboratory/Radiology) Laboratory/Radiology Laboratory Tests Test 08/25/25 22:58 08/26/25 00:32 White Blood Count 11.9 K/uL (4.8-10.8) H Red Blood Count 4.94 MIL/uL (4.50-6.20) Hemoglobin 14.7 g/dL (14.0-18.0) Hematocrit 42.8 % (42-54) Mean Corpuscular Volume 86.6 fL (79-99) Mean Corpuscular Hemoglobin 29.8 pg (27.0-33.0) Mean Corpuscular Hemoglobin Concent 34.3 g/dL (32.0-36.0) Red Cell Distribution Width 12.6 % (11.0-15.5) Platelet Count 415 K/uL (130-400) H Mean Platelet Volume 8.8 fL (7.5-10.5) Immature Granulocyte % (Auto) 0.6 % (0-1) Neutrophils (%) (Auto) 73.3 % (40.0-77.0) Lymphocytes (%) (Auto) 16.3 % (21.0-51.0) L Monocytes (%) (Auto) 9.0 % (3.0-13.0) Eosinophils (%) (Auto) 0.5 % (0.0-8.0) Basophils (%) (Auto) 0.3 % (0.0-5.0) Neutrophils # (Auto) 8.8 K/uL (1.8-7.7) H Lymphocytes # (Auto) 2.0 K/uL (1.0-4.8) Monocytes # (Auto) 1.1 K/uL (0.1-1.0) H Eosinophils # (Auto) 0.06 K/uL (0.00-0.70) Basophils # (Auto) 0.03 K/uL (0.00-0.20) Absolute Immature Granulocyte (auto 0.07 K/uL (0-1) Nucleated Red Blood Cells 0.0 % (0.0-0.19) Sodium Level 139 mmol/L (136-145) Potassium Level 3.5 mmol/L (3.5-5.1) Chloride Level 99 mmol/L (101-111) L Carbon Dioxide Level 28 mmol/L (21-32) Blood Urea Nitrogen 15 mg/dL (7-18) Creatinine 1.0 mg/dL (0.5-1.3) Glomerular Filtration Rate Calc 96 mL/min (>90) Random Glucose 101 mg/dL (70-105) Total Calcium 8.9 mg/dL (8.5-10.1) Magnesium Level 2.00 mg/dL (1.80-2.40) Total Creatine Kinase 162 U/L (21-232) Troponin I High Sensitivity 6 ng/L (4-75) Urine Opiates Screen NEGATIVE (NEGATIVE) Urine Barbiturates Screen NEGATIVE (NEGATIVE) Urine Phencyclidine Screen NEGATIVE (NEGATIVE) Urine Amphetamines Screen NEGATIVE (NEGATIVE) Urine Benzodiazepines Screen NEGATIVE (NEGATIVE) Urine Cocaine Screen NEGATIVE (NEGATIVE) Urine Marijuana (THC) Screen NEGATIVE (NEGATIVE) REASON: sob ORDERING PHYSICIAN: LAUREN TELLES PROCEDURE: CXR1VW - CHEST 1VW EXAM: CR Chest, 1 View. CLINICAL HISTORY: Sob. COMPARISON: June 23, 2025, chest radiograph. FINDINGS: The rotation present LUNGS: The lungs show no infiltrate or other acute finding. However, the right hilum appears bulky and needs further assessment with a contrast-enhanced CT chest, if required clinically. PLEURAL SPACES: No pleural effusion or pneumothorax. MEDIASTINUM: The cardiomediastinal silhouette is within normal limits. BONES: No aggressive appearing osseous lesion is seen. IMPRESSION: The right hilum appears bulky and needs further assessment with a contrast-enhanced CT chest, if required clinically. /Basin Labs Reviewed?: Yes EKG: (+) rhythm (Sinus tachycardia) EKG Comment: Date:08/25/2025 Time:2153 Ventricular rate:100 NC interval:118 QRS duration:85 QT/QTc:335/432 EKG interpretation: Sinus tachycardia Reviewed by ED Attending no STEMI ED Course ED Course Orders Procedure Category Date Status Time 12 Lead Ekg Tracing- EKG 08/25/25 Complete Technical 22:42 Cbc With Differential LAB 08/25/25 Complete 22:50 Chest 1vw RAD 08/25/25 Resulted 22:50 0.9%Nacl 1000ml (Ns PHA 08/25/25 Complete 1000ml) 23:00 Magnesium LAB 08/25/25 Complete 22:50 Creatine Kinase, Total LAB 08/25/25 Complete 22:50 Troponin I High LAB 08/25/25 Complete Sensitivity 22:50 Basic Metabolic Panel LAB 08/25/25 Complete 22:50 Drug Screen Urine LAB 08/25/25 Complete 22:50 Current Medications Medications (Trade) Dose Ordered Sig/Danielle Route PRN Reason Start Time Stop Time Status Last Admin Dose Admin Sodium Chloride 1,000 ml @ 0 mls/hr ONCE ONCE IV 08/25/25 23:00 08/25/25 23:01 DC 08/25/25 23:28 Vital Signs Date Time Temp Pulse Resp B/P (MAP) Pulse Ox O2 Delivery O2 Flow Rate FiO2 08/25/25 22:37 97.5 91 20 137/74 98 Room Air HEART Score Response (Comments) Value History: Low suspicion (0) 0 EKG: Normal 0 Age: < 45yrs (0) 0 Risk Factors: 1-2 risk factors (+1) 1 Initial Troponin: Normal limit (0) 0 Total 1 Medical Decision Making MDM The patient is a 44-year-old male with a history of tachycardia on metoprolol, inguinal hernia repair who presents to the emergency department with complaints of palpitations onset today around noon. Patient reports that he did cocaine last night and is now concerned for his tachycardia because of his previous history. Patient reports chest pressure to the left side since 7:00 p.m.. CBC showed mild leukocytosis, no anemia, chemistry showed mild hypochloremia, negative troponin post 6 hours from when he had pain. Patient with tenderness to chest which could be related to musculoskeletal. Patient with a low heart risk score. Chest x-ray showed right helium bulkyness. Patient otherwise with no shortness of breath, no cough, no pain to the right side of his heart. Patient instructed to follow up with the his PCP for this. Patient instructed to avoid any more drug use. On physical exam patient is in no acute distress, nontoxic appearance, vital signs remained stable in the ER with no signs of tachyarrhythmias. Differential diagnosis: ACS, anxiety, tachycardia, dehydration Need for hospitalization: Patient does not meet criteria for hospitalization. There are no social concerns with this patient. DX & DISP Disposition: Discharge Departure Impression: Primary Impression: Palpitations Additional Impression: History of cocaine abuse Condition: Stable Scripts No Active Prescriptions or Reported Meds Additional Instructions: Your labs were unremarkable. Your EKG was unremarkable. Avoid doing any drugs. You need to follow up with your primary doctor in 1-2 days. You need follow up on your x-ray. If anything worsens please return to ER. FOLLOW-UP WITH PRIMARY CARE PROVIDER IN 1 TO 2 DAYS. TAKE MEDICATIONS DIRECTED HERE IN THE EMERGENCY ROOM. OKAY TO CONTINUE HOME MEDICATIONS UNLESS OTHERWISE DISCUSSED DURING YOUR VISIT IN THE EMERGENCY ROOM TODAY. RETURN TO YOUR NEAREST EMERGENCY ROOM IF SYMPTOMS WORSEN OR IF THERE IS NO IMPROVEMENT. CALL 911 IF YOU NEED IMMEDIATE ASSISTANCE. TAKE TYLENOL [id number] NEEDED AND IF NO CONTRAINDICATIONS ARE PRESENT. INCREASE ORAL HYDRATION. A WOUND CULTURE OR URINE CULTURE WAS ORDERED HERE IN THE EMERGENCY ROOM DEPARTMENT PLEASE FOLLOW-UP WITH PRIMARY CARE PROVIDER AND ADVISE THEM TO GET REPEAT PORTS FROM OUR FACILITY. IF YOU HAD ANY GISELL WRAP/SPLINTS THAT WERE APPLIED HERE, PLEASE DO NOT REMOVE THEM UNTIL YOU SEE YOUR PRIMARY CARE OR SPECIALTY. Referrals: SELF,REFERRAL (PCP) Time of Disposition: 01:07 I have reviewed the case, and I agree with, Diagnosis and Plan LAUREN TELLES BUTTON INSPECTOR Aug 26, 2025 01:07
[2025-08-26 01:14] VITALS: BP 129/70; PULSE 88; RESP 18; TEMP 98.6; O2SAT 99
== END 2025-08-26 01:15 | disposition home or self-care (01) ==
LOC: EDH 22:34
DX: R00.2 Palpitations (principal); F14.10 Cocaine abuse, uncomplicated; Z98.890 Other specified postprocedural states
CPT/HCPCS: 99285; 96360; 71045; 96361; 82550; 83735; 84484; 80048; 80305; 85025; 36415; 93005; J7030